=== PATIENT | female | born 1945 | race Caucasian/White ===

== ENCOUNTER 2017-03-26 22:03 | Observation (INO) ==
[2017-03-26] MEDS ORDERED: Ipratropium/Albuterol Neb 3 ML IH ONE (22:16)
[2017-03-26] MEDS ORDERED: methylPREDNISolone 125 MG/2 ML VIAL IVP ONE (22:16)
[2017-03-26 22:46] LABS: Basophils % 0.4 %; Eosinophils # 0.1 K/mcL (0.0-0.6); Eosinophils % 0.6 %; Hematocrit 44.7 % (35.3-44.9); Hemoglobin 15.6 g/dL (11.5-15.4); Immature Granulocytes % 0.3 % (0-4); Lymphocytes # 1.5 K/mcL (0.6-4.6); Lymphocytes % 15.8 %; Mean Corpuscular HGB Conc 34.9 g/dL (31.6-35.5); Mean Corpuscular Hemoglobin 32.6 pg (28.0-33.3); Mean Corpuscular Volume 93.3 fL (83.0-100.0); Mean Platelet Volume 9.8 fL (9.4-12.4); Monocytes # 0.7 K/mcL (0.0-1.3); Monocytes % 7.6 %; Neutrophils # 7.1 K/mcL (1.6-8.9); Platelet Count 245 K/mcL (140-400); Red Blood Count 4.79 M/mcL (3.82-4.97); Red Cell Distribution Width 12.6 % (11.5-14.5); Segmented Neutrophils % 75.3 %
[2017-03-26 22:51] LABS: INR 1.1; Prothrombin Time 11.4 Seconds (9.4-12.1)
[2017-03-26 22:53] LABS: Activated Partial Thrombo Time 30.5 Seconds (26.0-36.0)
[2017-03-26 23:01] LABS: Alanine Aminotransferase 14 Units/L (0-55); Albumin 3.5 g/dL (3.5-5.0); Albumin/Globulin Ratio 0.9 (1.1-2.2); Alkaline Phosphatase 61 Units/L (38-126); Aspartate Amino Transferase 30 Units/L (5-34); BUN/Creatinine Ratio 16 (6-26); Bilirubin,Direct 0.3 mg/dL (0.0-0.5); Bilirubin,Indirect 0.4 mg/dL (0.0-1.2); Bilirubin,Total 0.7 mg/dL (0.2-1.2); Blood Urea Nitrogen 10 mg/dL (7-20); Calcium 9.8 mg/dL (8.6-10.8); Carbon Dioxide 30 mEq/L (19-29); Chloride 92 mEq/L (98-109); Globulin 4.1 g/dL (2.4-3.5); Glucose 111 mg/dL (70-99); Lipase 26 Units/L (8-78); Osmolality,Calculated 284 (280-300); Potassium 3.3 mEq/L (3.5-4.5); Sodium 137 mEq/L (136-145); Total Protein 7.6 g/dL (6.0-8.3); eGFR For African Americans > 60 (> 60); eGFR For Non-African Americans > 60 (> 60)
[2017-03-26] MEDS ORDERED: Aspirin 81 MG TAB.CHEW PO ONE (23:14)
--- NOTE | 2017-03-26 23:46 | Emergency Department Note ---
Disposition Clinical Impression: Elevated troponin Dyspnea Qualifiers: Dyspnea type: dyspnea on exertion Qualified Code(s): R06.09 - Other forms of dyspnea Disposition: Admitted As Inpatient Condition: Good Time of Disposition: 01:22 SOB HPI - General Chief Complaint: ED Shortness of Breath/Dyspnea Stated Complaint: eunice Time Seen by Provider: 03/26/17 23:03 Source: patient Limitations: no limitations Nursing Notes Reviewed: Yes Vital Signs Reviewed: Yes - History of Present Illness Pt Subjective Complaint: shortness of breath Onset (ago): day(s) (2) Context: trauma/injury (fell three days ago) Consistency/Duration: gradually worsening Improves with: bronchodilators Worsens with: movement Known history of: COPD Associated symptoms: Reports: wheezing, sputum production. Denies: chest pain, pain with inspiration, fever, cough, orthopnea, lower extremity pain, hemoptysis , diaphoresis, nausea/vomiting, abdominal pain Treatment prior to arrival: oxygen, bronchodilator Cough present: Yes Cough Description: Voluntary Cough Frequency: Intermittent - Related Data Allergies Allergy/AdvReac Type Severity Reaction Status Date / Time naproxen [From Naprosyn] AdvReac Dizziness Verified 03/26/17 22:11 All systems ED: reviewed and negative except as stated. Constitutional: Denies: fever, chills Eyes: Denies: eye discharge ENT ED: Denies: throat pain Cardiovascular: Denies: palpitations Respiratory: Reports: as per HPI Gastrointestinal: Denies: nausea Genitourinary: Denies: dysuria Musculoskeletal: Denies: back pain Integumentary: Denies: rash Neurological: Denies: headache Psychiatric: Denies: anxiety Endocrine: Denies: fatigue Hematological/Lymphatic: Denies: easy bleeding Allergic/Immunologic: Denies: facial swelling Past Medical History - Past Medical History Medical history: Reports: COPD, osteoporosis Psychiatric history: Reports: no psych history - Social History Smoking Status: Former smoker Smokeless Tobacco Status: No Alcohol use: Reports: none Drug use: Reports: none Physical Exam - General Limitations: no limitations General appearance: alert, in no apparent distress - Head Head exam: normocephalic - Eye Eye exam: Present: EOMI. Absent: conjunctival injection - ENT ENT exam: mucous membranes moist - Neck Neck exam: Present: full ROM - Chest Chest inspection: Present: symmetric chest wall rise - Respiratory Respiratory exam: Absent: respiratory distress, stridor, accessory muscle use, prolonged expiratory phase - Expanded Respiratory Exam Location: wheezes: Left, Upper, Lower, rhonchi: Left, Upper, Lower - Cardiovascular Cardiovascular exam: Present: regular rate, tachycardia, normal heart sounds - Abdominal Exam Abdominal exam: Present: Non-Tender - Extremities Exam Extremities exam: Present: normal inspection, full ROM, normal capillary refill. Absent: pedal edema - Back Exam Back exam: Present: tenderness Back 1 view image: 1 - eccymosis/tenderness - Neurological Exam Neurological exam: Present: alert - Psychiatric Psychiatric exam: Present: normal affect, normal mood - Skin Skin exam: Present: warm, dry, intact, normal color. Absent: rash, cyanosis, diaphoresis Course Course Narrative: 71-year-old female former smoker presents with worsening shortness of breath that started yesterday. She does mention a mechanical fall onto her back 3 days ago and describes pain since that time she her shortness of breath has started in worsening. She states no relief with her breathing treatments at home. She denies chest pain, diaphoresis, exertional component of her symptoms , neck or extremity pain, fever, chills. Patient seen and examined. Left sided rhonchi/wheezing on expiration. Ecchymosis noted over the posterior thoracic back just lateral to her thoracic spine, patient denies any vertebral pain., Headache, weakness, numbness, tingling. Workup initiated. - Reevaluation(s) Reevaluation #1: Chest x-ray shows bilateral basal linear opacities, atelectasis versus consolidation. Patient is also tachycardic, worsening shortness of breath since 2 days ago. Concerning for pneumonia. Patient also has elevated BNP and troponin. No concerning signs for STEMI on EKG, moderate ST depression. No bilateral extremity edema. Discussed with attending Dr. Yeh, who advised for CT of head and neck and back due to fall history of osteoporosis. Will also initiate fluids and will plan for admission. Time: 23:46 Reevaluation #2: Patient discussed with and accepted by hospitalist Dr. Mayorga. Time: 01:12 Vital Signs Temperature 98.5 F 10/04/17 22:04 Pulse Rate 102 03/26/17 22:04 Respiratory Rate 21 03/26/17 22:04 Blood Pressure 207/119 03/26/17 22:04 O2 Sat by Pulse Oximetry 93 03/26/17 22:04 Temperature 98.5 F 03/26/17 22:04 Pulse Rate 107 03/27/17 00:37 Respiratory Rate 16 03/27/17 00:37 Blood Pressure 166/90 03/27/17 00:37 O2 Sat by Pulse Oximetry 95 03/27/17 00:37 Oxygen Delivery Oxygen Delivery Nasal Cannula Shortness of Breath/Dyspnea - Lab Data Lab results reviewed: Yes I reviewed the patient's lab results. Result diagrams: 03/26/17 22:32 03/26/17 22:32 Lab Results 03/26/17 03/26/17 03/26/17 Range/Units 22:32 22:32 22:32 WBC 9.4 (4.3-11.1) K/mcL RBC 4.79 (3.82-4.97) M/mcL Hgb 15.6 H (11.5-15.4) g/dL Hct 44.7 (35.3-44.9) % MCV 93.3 (83.0-100.0) fL MCH 32.6 (28.0-33.3) pg MCHC 34.9 (31.6-35.5) g/dL RDW 12.6 (11.5-14.5) % Plt Count 245 (140-400) K/mcL MPV 9.8 (9.4-12.4) fL Immature Gran % 0.3 (0-4) % Seg Neutrophils % 75.3 % Lymphocytes % 15.8 % Monocytes % 7.6 % Eosinophils % 0.6 % Basophils % 0.4 % Neutrophils # 7.1 (1.6-8.9) K/mcL Lymphocytes # 1.5 (0.6-4.6) K/mcL Monocytes # 0.7 (0.0-1.3) K/mcL Eosinophils # 0.1 (0.0-0.6) K/mcL Basophils # 0.0 (0.0-0.2) K/mcL PT 11.4 (9.4-12.1) Seconds INR 1.1 APTT 30.5 (26.0-36.0) Seconds Sodium (136-145) mEq/L Potassium (3.5-4.5) mEq/L Chloride (98-109) mEq/L Carbon Dioxide (19-29) mEq/L BUN (7-20) mg/dL Creatinine (0.57-1.11) mg/dL Est GFR ( Amer) (> 60) Est GFR (Non-Af Amer) (> 60) BUN/Creatinine Ratio (6-26) Glucose (70-99) mg/dL Calculated Osmolality (280-300) Lactic Acid (0.5-2.2) mmol/L Calcium (8.6-10.8) mg/dL Total Bilirubin (0.2-1.2) mg/dL Direct Bilirubin (0.0-0.5) mg/dL Indirect Bilirubin (0.0-1.2) mg/dL AST (5-34) Units/L ALT (0-55) Units/L Alkaline Phosphatase (38-126) Units/L Troponin I (0-0.03) ng/mL B-Natriuretic Peptide 480 H (0-100) pg/mL Serum Total Protein (6.0-8.3) g/dL Albumin (3.5-5.0) g/dL Globulin (2.4-3.5) g/dL Albumin/Globulin Ratio (1.1-2.2) Lipase (8-78) Units/L 03/26/17 03/26/17 03/27/17 Range/Units 22:32 22:32 00:22 WBC (4.3-11.1) K/mcL RBC (3.82-4.97) M/mcL Hgb (11.5-15.4) g/dL Hct (35.3-44.9) % MCV (83.0-100.0) fL MCH (28.0-33.3) pg MCHC (31.6-35.5) g/dL RDW (11.5-14.5) % Plt Count (140-400) K/mcL MPV (9.4-12.4) fL Immature Gran % (0-4) % Seg Neutrophils % % Lymphocytes % % Monocytes % % Eosinophils % % Basophils % % Neutrophils # (1.6-8.9) K/mcL Lymphocytes # (0.6-4.6) K/mcL Monocytes # (0.0-1.3) K/mcL Eosinophils # (0.0-0.6) K/mcL Basophils # (0.0-0.2) K/mcL PT (9.4-12.1) Seconds INR APTT (26.0-36.0) Seconds Sodium 137 (136-145) mEq/L Potassium 3.3 L (3.5-4.5) mEq/L Chloride 92 L (98-109) mEq/L Carbon Dioxide 30 H (19-29) mEq/L BUN 10 (7-20) mg/dL Creatinine 0.61 (0.57-1.11) mg/dL Est GFR ( Amer) > 60 (> 60) Est GFR (Non-Af Amer) > 60 (> 60) BUN/Creatinine Ratio 16 (6-26) Glucose 111 H (70-99) mg/dL Calculated Osmolality 284 (280-300) Lactic Acid 0.9 (0.5-2.2) mmol/L Calcium 9.8 (8.6-10.8) mg/dL Total Bilirubin 0.7 (0.2-1.2) mg/dL Direct Bilirubin 0.3 (0.0-0.5) mg/dL Indirect Bilirubin 0.4 (0.0-1.2) mg/dL AST 30 (5-34) Units/L ALT 14 (0-55) Units/L Alkaline Phosphatase 61 (38-126) Units/L Troponin I 0.05 H* (0-0.03) ng/mL B-Natriuretic Peptide (0-100) pg/mL Serum Total Protein 7.6 (6.0-8.3) g/dL Albumin 3.5 (3.5-5.0) g/dL Globulin 4.1 H (2.4-3.5) g/dL Albumin/Globulin Ratio 0.9 L (1.1-2.2) Lipase 26 (8-78) Units/L - Radiology Data Radiology results reviewed: Yes I reviewed the patient's radiology results. - EKG Data EKG attestation: Yes I reviewed and interpreted this EKG. EKG results narrative: Sinus tachycardia at 109, Moderate ST depression, no evidence of ST elevation, MS interval 128, QRS duration 86, QT/QTC 333/397 Attestation Statement - Attestation Attestation: I examined this patient and my medical decision-making was reviewed with the Resident Physician. I agree with the documented findings, disposition and treatment plan as described except to the extent set forth below. ACOPDE with pneumonia therapy. Patient staets she has had a productive cough with fall and that she has had pneumonia in the past and it feels very similar. pneumonia present on CXR, we will treat with levaquin and breathing treatments/ seroids and admit to medicne.
[2017-03-27] MEDS ORDERED: 0.9 % Sodium Chloride 500 ML IVC ONE (00:45)
[2017-03-27] MEDS ORDERED: Levofloxacin 500 MG/100 ML 500 MG/100 ML BAG IVPB SCH (01:00)
[2017-03-27] MEDS ORDERED: *HR* Morphine 2 MG/ML SYRINGE IVP PRN (02:03)
[2017-03-27] MEDS ORDERED: *HR* Promethazine 25 MG/ML VIAL IVP PRN (02:03)
[2017-03-27] MEDS ORDERED: Naloxone 0.4 MG/ML INJ IVP PRN ×2 (02:03→12:24)
[2017-03-27] MEDS ORDERED: Acetaminophen 325 MG TABLET PO PRN (02:03)
[2017-03-27] MEDS ORDERED: Ondansetron 4 MG/2 ML VIAL IVP PRN (02:03)
--- NOTE | 2017-03-27 02:13 | Internal Med History&Physical ---
Date of Encounter: 03/27/17 Time of Encounter: 01:30 Assessment and Plan (1) Acute and chronic respiratory failure with hypoxia Current visit: Yes Status: Acute Will admit the pt into Tele Pt does have severe COPD exacerbation might triggered by pneumonia will cont Duoneb Q4hr NELL + O2 Will start her on high talamantes IV steroids on Mucinex Will sent for sputum cx started her on empirical abx Levofloxacin (2) Pneumonia Current visit: Yes Status: Acute Mostly bacterial reviewed CXR showing patchy infiltrates in b/l basal region, yareli bronchial thickening, hyperinflated lungs noticed..Vascular congestion noticed Will cont empirical abx Levofloxacin Duoneb and O2 Qualifiers: Qualified Code(s): J18.9 - Pneumonia, unspecified organism (3) COPD with acute exacerbation Current visit: Yes Status: Acute see above (4) Elevated troponin Current visit: Yes Status: Acute Mostly due demand ischemia with respiratory failure also concerned for underline acute onset of mild CHF exacerbation cont trend on trop will check 2 D Echo (5) Congestive heart failure Current visit: Yes Status: Acute She does have clinical symptoms Orthopnea, and B/l LE edema , also had significantly elevated BNP No previous Echo to confirm Systolic vs Diastolic..suspecting more like diastolic will check 2 D Echo in AM Will hold on Lasix for now Qualifiers: Congestive heart failure type: unspecified congestive heart failure type Qualified Code(s): I50.9 - Heart failure, unspecified Internal Medicine - H&P: HPI Chief complaint: Shortness of breath Admitted From: Emergency Dept Plans for Post Hospital Care: Home History of present illness: Ms. Valentino is a 71 year old female with known PMH of HTN, COPD, Chronic hypoxic respiratory failure on home O2 dependent at 2 lit as needed basis, who was a former smoker quit smoking in 2010 now she presented to ER c/o progressively worsening SOB, Cough with yellowsih sputum production from past 3 days. She also had a mechanical fall a couple of days ago , denied any head trauma. Denied any active CP . Denied any GI / symptoms. Past Med Surg Social Fam HX - Past Medical History Medical history: COPD, osteoporosis Psychiatric history: no psych history - Social History Smoking Status: Former smoker Smokeless Tobacco Status: No Alcohol use: none Drug use: none - Additional Family History Additional family history: Reviewed and noncontributory to current problem Internal Medicine - H&P: Meds 3 Allergy/AdvReac Type Severity Reaction Status Date / Time naproxen [From Naprosyn] AdvReac Dizziness Verified 03/26/17 22:11 All Systems PM: A 10-system review of systems was performed and is negative for pertinent findings except as documented above in the HPI. Review of systems: All the systems are reviewed everything is benign except the systems and symptoms I mentioned in the history of present illness - Constitutional Vitals: Temp Pulse Resp BP Pulse Ox 98.4 F 107 18 162/88 95 03/27/17 02:03 03/27/17 00:37 03/27/17 02:03 03/27/17 02:03 03/27/17 00:37 General appearance: Present: mild distress (However she is able to finish full sentence without any pause), A&O X 3 - Head Head exam: Present: atraumatic, normal inspection - Neck Neck exam general surgery: Present: supple. Absent: lymphadenopathy - Respiratory Respiratory exam: Present: decreased breath sounds, respiratory distress (mild) , wheezes (moderate to severe wheezing). Absent: rales, rhonchi - Cardiovascular Cardiovascular exam: Present: +S1, +S2, tachycardia - GI/Abdominal GI/Abdominal exam: Present: normal bowel sounds, soft. Absent: rebound, rigid, tenderness - Extremities Exam Extremities exam: Present: pedal edema (traceble). Absent: calf tenderness, tenderness - Back Exam Back exam: Absent: CVA tenderness (L), CVA tenderness (R) - Psychiatric Psychiatric exam: Present: normal affect, normal mood Internal Med - H&P Results - Labs CBC & Chem 7: 03/26/17 22:32 03/26/17 22:32
[2017-03-27] MEDS ORDERED: Nitroglycerin 0.4 MG TAB.SUBL SL PRN (02:26)
[2017-03-27] MEDS: *HR* HYDROcodone/Acet 5/325 mg TABLET PO PRN ×2 (03:23→17:44)
[2017-03-27] MEDS: Ipratropium/Albuterol Neb 3 ML IH SCH ×4 (03:42→16:02)
[2017-03-27] MEDS: MethylPREDNISolone 40 MG/ML VIAL IVP SCH ×3 (05:43→17:45)
[2017-03-27 05:56] LABS: Basophils % 0.1 %; Hemoglobin 14.4 g/dL (11.5-15.4); Immature Granulocytes % 0.2 % (0-4); Lymphocytes # 0.4 K/mcL (0.6-4.6); Lymphocytes % 3.7 %; Mean Corpuscular HGB Conc 34.3 g/dL (31.6-35.5); Mean Corpuscular Volume 93.3 fL (83.0-100.0); Mean Platelet Volume 9.7 fL (9.4-12.4); Monocytes # 0.1 K/mcL (0.0-1.3); Monocytes % 0.7 %; Neutrophils # 8.9 K/mcL (1.6-8.9); Platelet Count 257 K/mcL (140-400); Red Cell Distribution Width 12.5 % (11.5-14.5); Segmented Neutrophils % 95.3 %
[2017-03-27 06:10] LABS: BUN/Creatinine Ratio 18 (6-26); Blood Urea Nitrogen 12 mg/dL (7-20); Calcium 9.2 mg/dL (8.6-10.8); Carbon Dioxide 31 mEq/L (19-29); Chloride 95 mEq/L (98-109); Chol/HDL Ratio 2.7 (0-4.9); Cholesterol 212 mg/dL (< 200); Glucose 152 mg/dL (70-99); HDL Cholesterol 79 mg/dL (40-59); LDL Cholesterol,Calculated 121 mg/dL (0-99); Osmolality,Calculated 287 (280-300); Potassium 3.7 mEq/L (3.5-4.5); Sodium 137 mEq/L (136-145); Triglycerides 58 mg/dL (< 150); eGFR For African Americans > 60 (> 60); eGFR For Non-African Americans > 60 (> 60)
[2017-03-27] MEDS: Aspirin Enteric Coated 81 MG Tablet PO SCH (09:00)
[2017-03-27] MEDS ORDERED: Chloraseptic Spray 177 ML BOTTLE MM PRN (11:13)
--- NOTE | 2017-03-27 16:47 | Event Note ---
Date of Encounter: 03/27/17 Time of Encounter: 15:00 71-year-old female with history of hypertension, COPD presents with worsening shortness of breath, wheeze and status post mechanical fall 2 days ago. Patient is seen and examined at bedside. Reports improved shortness of breath and cough. Chest-S1, S2 heard, tachycardic. Lungs with coarse breath sounds bilaterally with end expiratory wheezing posteriorly. Acute on chronic hypoxic respiratory failure-secondary to acute COPD and pneumonia. Continue supplemental oxygen and treatment of underlying conditions as below. Acute exacerbation of COPD-improving. Continue bronchodilators, IV steroids and IV antibiotics. Supplemental oxygen. We will change short-acting beta 2 agonist to Xopenex due to tachycardia. Pneumonia-suspected. Chest x-ray shows bibasal streaky infiltrate/atelectasis. Continue IV Levaquin and follow-up blood cultures. Supplemental oxygen.
[2017-03-27] MEDS: Ipratropium Neb 0.5 MG NEBULIZER IH SCH ×2 (20:02→23:16)
[2017-03-27] MEDS: Albuterol 2.5 MG/3 ML NEBULIZER IH SCH ×2 (20:02→23:15)
--- NOTE | 2017-03-27 21:52 | Electrocardiograph Report ---
[facility] Test Date: 2017-03-26 Pat Name: Jonelle Valentino Department: 103 Room: 3B63 Gender: F Application Penetration Tester: DESTINY : 1945 Requested By: Ruba Robertson Order Number: [id number] Reading MD: Everardo Rojas MD Measurements Intervals [place] Rate: 109 P: 50 MA: 128 QRS: -48 QRSD: 86 T: 81 QT: 333 QTc: 397 Interpretive Statements SINUS TACHYCARDIA LEFT ANTERIOR FASCICULAR BLOCK Electronically Signed On 03-27-2017 21:50:54 EDT by Everardo Rojas MD
[2017-03-27] MEDS ORDERED: *HR* Dextrose 50 % in Water (Syg) 50 ML SYRINGE IVP PRN (22:26)
[2017-03-27] MEDS ORDERED: D5% in Water 1,000 ML IVC PRN (22:26)
[2017-03-27] MEDS ORDERED: Dextrose Gel 15 GM PO PRN ×2 (22:26)
[2017-03-27] MEDS: Insulin LISPRO 300 UNITS/3 ML VIAL SQ SCH (22:48)
[2017-03-28] MEDS: Levofloxacin 500 MG/100 ML 500 MG/100 ML BAG IVPB SCH (01:10)
[2017-03-28] MEDS: MethylPREDNISolone 40 MG/ML VIAL IVP SCH ×4 (01:10→17:56)
[2017-03-28] MEDS: Ipratropium Neb 0.5 MG NEBULIZER IH SCH ×6 (03:46→23:36)
[2017-03-28] MEDS: Albuterol 2.5 MG/3 ML NEBULIZER IH SCH ×3 (03:48→11:22)
[2017-03-28] MEDS: Insulin LISPRO 300 UNITS/3 ML VIAL SQ SCH ×4 (08:25→20:27)
[2017-03-28] MEDS: Aspirin Enteric Coated 81 MG Tablet PO SCH (08:25)
[2017-03-28] MEDS: Levalbuterol Neb 1.25 MG/3 ML IH SCH ×2 (15:39→23:36)
--- NOTE | 2017-03-28 17:32 | Internal Med Progress Note ---
Date of Encounter: 03/28/17 Time of Encounter: 13:30 - Assessment and plan (1) Elevated troponin Current Visit: Yes Status: Acute Assessment and plan: due to hypoxia and demand ischemia; normalized now. Echocardiogram showed significant sinus tachycardia, preserved EF, moderate concentric LVH, mild biatrial dilation, possible moderate mitral stenosis, recommend to repeat study when HR is better controlled. (2) COPD with acute exacerbation Current Visit: Yes Status: Acute Assessment and plan: improving; continue IV antibiotics, supplemental O2; taper down IV steroids as tolerated; will change nebs to Xopenex and Atrovent due to persistent tachycardia. O2 requirements improved to baseline. (3) Acute and chronic respiratory failure with hypoxia Current Visit: Yes Status: Resolved (4) Pneumonia Current Visit: Yes Status: Acute Assessment and plan: Chest XRay shows streaky opacities in B/L bases, could be infiltrates. Continue IV Levaquin. Improving. Blood cultures negative. Qualifiers: Pneumonia type: due to unspecified organism Laterality: bilateral Lung location: lower lobe of lung Qualified Code(s): J18.9 - Pneumonia, unspecified organism (5) Essential hypertension Current Visit: Yes Status: Chronic - Subjective Interval history: Reports feeling much better today; improved shortness of breath, wheezing, anxious to go home today. - Constitutional Vitals: Temp Pulse Resp BP Pulse Ox 98.0 F 104 18 155/89 97 03/28/17 15:04 03/28/17 15:04 03/28/17 15:41 03/28/17 15:04 03/28/17 16:40 General appearance: Present: A&O X 3, answers questions appropriately - Respiratory Respiratory exam: Present: CTAB. Absent: accessory muscle use, rales, rhonchi, wheezes - Cardiovascular Cardiovascular exam: Present: RRR (extra beats), +S1, +S2, tachycardia. Absent : diastolic murmur, gallop, rubs, systolic murmur - GI/Abdominal GI/Abdominal exam: Present: normal bowel sounds, soft, no peritoneal signs. Absent: distended, tenderness - Extremities Exam Extremities exam: Present: full ROM, warm, radial pulses palpable and symmetrical. Absent: calf tenderness, cyanotic, pedal edema Internal Medicine: Result - Labs CBC & Chem 7: 03/27/17 05:49 03/27/17 05:49 - ABG Interpretation ABG results: PT/INR, D-dimer PT 11.4 Seconds (9.4-12.1) 03/26/17 22:32 Consult Discharge Plan - Plan Referrals: Ben Hoagn DO [Primary Care Provider] -
[2017-03-29] MEDS: Levofloxacin 500 MG/100 ML 500 MG/100 ML BAG IVPB SCH (01:42)
[2017-03-29] MEDS: Ipratropium Neb 0.5 MG NEBULIZER IH SCH ×3 (04:32→11:05)
[2017-03-29] MEDS: Levalbuterol Neb 1.25 MG/3 ML IH SCH ×2 (04:32→07:58)
[2017-03-29] MEDS: MethylPREDNISolone 40 MG/ML VIAL IVP SCH (06:10)
[2017-03-29 07:52] VITALS: BP 175/99
[2017-03-29] MEDS: Aspirin Enteric Coated 81 MG Tablet PO SCH (08:27)
[2017-03-29] MEDS: Insulin LISPRO 300 UNITS/3 ML VIAL SQ SCH (08:28)
[2017-03-29] MEDS ORDERED: predniSONE 20 MG TABLET PO SCH (09:00)
--- NOTE | 2017-03-29 09:30 | Discharge Summary ---
Date of Encounter: 03/29/17 Time of Encounter: 09:28 - Discharge Diagnosis (1) Pneumonia Priority: Primary Status: Acute Qualifiers: Pneumonia type: due to unspecified organism Laterality: bilateral Lung location: lower lobe of lung Qualified Code(s): J18.9 - Pneumonia, unspecified organism (2) COPD with acute exacerbation Priority: Secondary Status: Acute (3) Elevated troponin Priority: Secondary Status: Acute (4) Acute and chronic respiratory failure with hypoxia Priority: Secondary Status: Resolved (5) Essential hypertension Priority: Secondary Status: Chronic (6) Congestive heart failure Priority: Secondary Status: Suspected Qualifiers: Congestive heart failure type: diastolic Congestive heart failure chronicity: chronic Qualified Code(s): I50.32 - Chronic diastolic (congestive ) heart failure - Discharge Medications Prescriptions: Aspirin Enteric Coated [Aspirin EC] 81 mg PO DAILY #30 tablet. Carvedilol [Coreg] 6.25 mg PO BIDWM #60 tablet levoFLOXacin [Levofloxacin] 500 mg PO DAILY #10 tablet predniSONE [PredniSONE] 10 mg PO DAILY 12 Days tablet Home Medications: Albuterol Sulfate [Proair Hfa] 2 puff IH Q4H PRN 03/27/17 [History] Budesonide/Formoterol 80/4.5 [Symbicort 80/4.5] 2 puff IH BID 03/27/17 [History ] Ca/D3/Mag#11/Zinc/Forestry Fire Aid/Saul/Bor [Caltrate 600+D Plus Tablet] 1 each PO QAM [History] HYDROcodone/Acet 5/325 mg [[place] 5-325 mg] 1 tab PO Q8H PRN 03/27/17 [History] Multivit with Calcium,Iron,Min [One Daily Women's] 1 each PO QAM 03/27/17 [ History] Oxygen 2 l NS AD PRN 03/27/17 [History] Aspirin Enteric Coated [Aspirin EC] 81 mg PO DAILY #30 tablet. 03/29/17 [Rx] Carvedilol [Coreg] 6.25 mg PO BIDWM #60 tablet 03/29/17 [Rx] levoFLOXacin [Levofloxacin] 500 mg PO DAILY #10 tablet 03/29/17 [Rx] predniSONE [PredniSONE] 10 mg PO DAILY 12 Days tablet 03/29/17 [Rx] Allergies/Adverse Reactions: 3 Allergy/AdvReac Type Severity Reaction Status Date / Time naproxen [From Naprosyn] AdvReac Dizziness Verified 03/26/17 22:11 Procedures/tests Complete & Pending: Procedures Performed prior 72 hours Category Date Time Status EV echocardiogram Routine Y 03/27/17 02:08 Completed Date of admission: 03/27/17 01:23 Primary care physician: Ben Hogan, Consults: 03/27/17 11:43 Consult to Medical Records Coordinator [CONS] Routine Reason for SW Consult: discharge planning Discharging clinician: Miguelina Damian Anticipated date of discharge: 03/29/17 - Patient Status Disposition: Home, Self-Care Condition: Good Functional capacity at discharge: independent ambulation Overall status at discharge: patient is progressing back to baseline - Discharge Instructions Instructions: Chronic Obstructive Pulmonary Disease (DC), Chronic Hypertension (DC), Pneumonia (DC) Follow Up With: Ben Hogan DO [Primary Care Provider] - (In 1-2 weeks) Maico Kerr MD [Partnered Physician] - (In 1-2 weeks) - Diet and Activity Activity: increase activity as tolerated, wear oxygen at all times Diet: diabetic diet, low fat, low cholesterol, low salt diet Hospital course: Ms. Valentino is a 71 year old female patient with a history of hypertension, COPD , chronic hypoxic respiratory failure who was hospitalized here with worsening shortness of breath along with cough and yellow sputum. She also admits recent mechanical fall. She was admitted and treated for pneumonia and COPD exacerbation with bronchodilators, O2 supplementation, antibiotics and steroids. She had an elevated BNP on initial blood work. Her troponins were also slightly elevated to 0.05 and have since trended down. A 2-D echocardiogram was done which showed a normal ejection fraction. Diastolic function could not be determined due to persistent tachycardia. The patient may have underlying diastolic dysfunction but did not have any symptoms of overt heart failure. Her chest x-ray showed COPD and bibasilar atelectasis/ infiltrates. Her troponin elevation is most likely due to demand ischemia and hypoxia. At this time, patient is feeling much better and is clinically stable for discharge home. She will be discharged on a steroid taper and levofloxacin. Patient did have elevated blood sugars on presentation. She has no prior diagnosis of diabetes. Her blood sugars were continuously monitored during her stay here. They have improved since. She required insulin initially but since yesterday her blood sugars have been much better without any insulin. She may have prediabetes and an A1c level has been ordered and is currently pending. She can follow up further with her primary care provider. Patient has also been hypotensive and I am placing her on carvedilol. She had previously been on antihypertensive medications but these were discontinued as she was becoming hypotensive. She will follow-up with her primary care provider for further management. I am also referring her to pulmonology for her COPD. - Time Spent with Patient Total time spent providing and/or coordinating discharge services: Greater than 30 minutes (35 min) - Constitutional Vitals: Temp Pulse Resp BP Pulse Ox 98.1 F 90 16 175/99 94 03/29/17 07:51 03/29/17 07:51 03/29/17 07:51 03/29/17 07:51 03/29/17 07:51 General appearance: Present: A&O X 3, answers questions appropriately - Neck Neck exam general surgery: Present: supple, trachea midline. Absent: lymphadenopathy - Respiratory Respiratory exam: Present: prolonged expiratory phase. Absent: accessory muscle use, rales, rhonchi, wheezes - Cardiovascular Cardiovascular exam: Present: RRR, +S1, +S2. Absent: diastolic murmur, gallop, rubs, systolic murmur - GI/Abdominal GI/Abdominal exam: Present: normal bowel sounds, soft, no peritoneal signs. Absent: distended, tenderness - Extremities Exam Extremities exam: Present: warm, radial pulses palpable and symmetrical. Absent : calf tenderness, cyanotic, pedal edema
[2017-03-29 10:20] LABS: Hemoglobin A1C 5.4 %
== END 2017-03-29 11:30 | disposition home or self-care (01) ==
LOC: EMEROO 22:03 → 3BNU 22:03 → SUATTDRO 03-27 01:23 → 3BNU 03-27 01:26
PROVIDERS: ADMIT Pediatrics; ATTEND Internal Medicine

== ENCOUNTER 2017-04-09 14:34 | Inpatient (IN) ==
[2017-04-09] MEDS ORDERED: Ipratropium/Albuterol Neb 3 ML IH ONE (14:37)
--- NOTE | 2017-04-09 14:39 | Emergency Department Note ---
START Narrative - START START: Patient seen shortly after her arrival by EMS. She was seen in the hallway due to lack of medical meds. She complains of dyspnea with an existing history of oxygen dependent COPD. Recent admission for same with diagnosis of pneumonia. Mild dyspnea on exam. Orders placed I examined this patient and my medical decision-making was reviewed with the Resident Physician. I agree with the documented findings, disposition and treatment plan as described except to the extent set forth below.
--- NOTE | 2017-04-09 14:43 | Emergency Department Note ---
Disposition Clinical Impression: HCAP (healthcare-associated pneumonia), Hypoxia Chest pain Qualifiers: Chest pain type: unspecified Qualified Code(s): R07.9 - Chest pain, unspecified Dyspnea Qualifiers: Dyspnea type: unspecified Qualified Code(s): R06.00 - Dyspnea, unspecified Disposition: Admitted As Inpatient Condition: Good Forms: ED Satisfaction Letter Time of Disposition: 16:04 SOB HPI - General Chief Complaint: ED Shortness of Breath/Dyspnea Stated Complaint: PRIYANKA Time Seen by Provider: 04/09/17 14:37 Source: patient, EMS Limitations: no limitations Nursing Notes Reviewed: Yes Vital Signs Reviewed: Yes - History of Present Illness Patient is a 71-year-old female with past medical history of COPD, HTN. She had a recent diagnosis of pneumonia 2 weeks ago. She was hospitalized during that time, eventually fell home with oral antibiotics. She states that she finished her last dose of Levaquin yesterday. She was also sent home with oxygen due to low oxygen saturation during her stay. She uses 2 L chronically now. Before this event, the patient said that she had not used home oxygen in years. She presents today due to shortness of breath, left-sided chest pain. She says that she is very anxious, she had an echocardiogram done in the hospital that she says showed inconclusive reading about her mitral valve and this is worrying her. She said "I think in the perfect candidate for heart attack." She is still having some mild left sided chest discomfort, shortness of breath. Denies any fevers, nausea, vomiting, abdominal pain, diarrhea. She does admit to productive cough and phlegm production above her baseline. Son is present with her and states that she fell about 3 weeks ago and hit the left side of the chest on coffee table. - Related Data Home Medications Medication Instructions Recorded Confirmed Albuterol Sulfate [Proair Hfa] 2 puff IH Q4H PRN 03/27/17 03/27/17 Budesonide/Formoterol 80/4.5 2 puff IH BID 03/27/17 03/27/17 [Symbicort 80/4.5] Ca/D3/Mag#11/Zinc/Raw Stock Machine Loader/Saul/Bor 1 each PO QAM 03/27/17 03/27/17 [Caltrate 600+D Plus Tablet] HYDROcodone/Acet 5/325 mg [[place] 1 tab PO Q8H PRN 10/05/17 10/05/17 5-325 mg] Multivit with Calcium,Iron,Min 1 each PO QAM 03/27/17 03/27/17 [One Daily Women's] Oxygen 2 l NS AD PRN 03/27/17 03/27/17 Previous Rx's Medication Instructions Recorded Aspirin Enteric Coated [Aspirin EC] 81 mg PO DAILY #30 tablet. 03/29/17 Carvedilol [Coreg] 6.25 mg PO BIDWM #60 tablet 03/29/17 levoFLOXacin [Levofloxacin] 500 mg PO DAILY #10 tablet 03/29/17 predniSONE [PredniSONE] 10 mg PO DAILY 12 Days tablet 03/29/17 Allergies Allergy/AdvReac Type Severity Reaction Status Date / Time naproxen [From Naprosyn] AdvReac Dizziness Verified 03/26/17 22:11 All systems ED: reviewed and negative except as stated. Constitutional: Denies: fever Cardiovascular: Reports: chest pain Respiratory: Reports: cough, dyspnea, sputum production Gastrointestinal: Denies: abdominal pain, nausea, vomiting, diarrhea Genitourinary: Denies: urgency, dysuria, frequency Neurological: Denies: headache, weakness, numbness, paresthesias Past Medical History - Past Medical History Attestation: Yes The following information was validated with the patient. Source: patient Medical history: Reports: COPD, hypertension, osteoporosis Surgical history: Reports: orthopedic, other Psychiatric history: Reports: no psych history - Social History Smoking Status: Former smoker Smokeless Tobacco Status: No Alcohol use: Reports: none Drug use: Reports: none Physical Exam - General Limitations: no limitations General appearance: alert, in no apparent distress - Head Head exam: atraumatic, normocephalic, normal inspection - Eye Eye exam: Present: normal appearance, PERRL, EOMI - ENT ENT exam: normal exam, normal oropharynx, mucous membranes moist - Neck Neck exam: Present: normal inspection, full ROM, trachea midline - Chest Chest inspection: Present: normal inspection, symmetric chest wall rise - Respiratory Respiratory exam: Present: wheezes (Wheezes of the right lower lobe, decreased aeration of the left lower lobe) - Cardiovascular Cardiovascular exam: Present: regular rate, normal rhythm, normal heart sounds - Abdominal Exam Abdominal exam: Present: soft, Non-Tender. Absent: tenderness, distention, guarding, rebound, rigidity - Extremities Exam Extremities exam: Present: normal inspection, full ROM. Absent: tenderness, pedal edema - Neurological Exam Neurological exam: Present: alert, oriented X3 - Psychiatric Psychiatric exam: Present: normal affect, normal mood - Skin Skin exam: Present: warm, dry, intact, normal color Course Course Narrative: Patient was hypertensive on presentation, however, she was moving her arms around and not sitting still. We will recheck this to see if the level is accurate. Oxygen saturation 92% on room air. The rest of the vitals were within normal limits. Patient has mild to moderate increased work of breathing with some mild accessory muscle use. She has decreased aeration of the left lower lobe, wheezes in the right lower lobe. Otherwise, rest of the physical exam was benign. We will give the patient breathing treatments, obtain chest x- ray, EKG, basic blood work. I think patient's presentation is likely more COPD related with anxiety component. However, still need to assess cardiac etiology. 15:57 troponin elevated at 0.06. Troponin has been elevated in the past at 0.03 and 0.05. Patient has been given aspirin. She currently denies any chest pain at this time. I do not believe that this is cardiac in nature. Chest x- ray shows left lower lobe pneumonia. Patient was just recently released from the hospital. Technically, this to be healthcare associated pneumonia. We will start IV antibiotics of clindamycin, Zosyn, Levaquin. Otherwise, the rest of the labs were near baseline for the patient. EKG showed sinus rhythm with occasional PACs with no acute ST changes. All this was discussed with the patient. She was agreeable with coming into the hospital for IV antibiotics. We will admit for pneumonia, dyspnea, hypoxia, elevated troponin level. Vital Signs Temperature 98.6 F 04/09/17 14:35 Pulse Rate 93 04/09/17 14:35 Respiratory Rate 20 04/09/17 14:35 Blood Pressure 202/106 04/09/17 14:35 O2 Sat by Pulse Oximetry 92 04/09/17 14:35 Temperature 98.6 F 04/09/17 14:35 Pulse Rate 90 04/09/17 15:21 Respiratory Rate 18 04/09/17 15:21 Blood Pressure 161/105 04/09/17 15:21 O2 Sat by Pulse Oximetry 91 04/09/17 15:21 Oxygen Delivery Oxygen Delivery Nasal Cannula Shortness of Breath/Dyspnea - [facility] Narrative Medical decision making narrative: troponin elevated at 0.06. Troponin has been elevated in the past at 0.03 and 0.05. Patient has been given aspirin. She currently denies any chest pain at this time. I do not believe that this is cardiac in nature. Chest x-ray shows left lower lobe pneumonia. Patient was just recently released from the hospital. Technically, this to be healthcare associated pneumonia. We will start IV antibiotics of clindamycin, Zosyn, Levaquin. Otherwise, the rest of the labs were near baseline for the patient. EKG showed sinus rhythm with occasional PACs with no acute ST changes. All this was discussed with the patient. She was agreeable with coming into the hospital for IV antibiotics. We will admit for pneumonia, dyspnea, hypoxia, elevated troponin level. - Medical Records Medical records reviewed: Yes I reviewed the patient's medical records. - Lab Data Lab results reviewed: Yes I reviewed the patient's lab results. Result diagrams: 04/09/17 14:56 04/09/17 14:56 Lab Results 04/09/17 04/09/17 04/09/17 Range/Units 14:56 14:56 14:56 WBC 14.2 H (4.3-11.1) K/mcL RBC 5.12 H (3.82-4.97) M/mcL Hgb 16.2 H (11.5-15.4) g/dL Hct 46.5 H (35.3-44.9) % MCV 90.8 (83.0-100.0) fL MCH 31.6 (28.0-33.3) pg MCHC 34.8 (31.6-35.5) g/dL RDW 12.5 (11.5-14.5) % Plt Count 348 (140-400) K/mcL MPV 9.4 (9.4-12.4) fL Immature Gran % 0.6 (0-4) % Seg Neutrophils % 77.4 % Lymphocytes % 13.7 % Monocytes % 7.7 % Eosinophils % 0.5 % Basophils % 0.1 % Neutrophils # 11.0 H (1.6-8.9) K/mcL Lymphocytes # 1.9 (0.6-4.6) K/mcL Monocytes # 1.1 (0.0-1.3) K/mcL Eosinophils # 0.1 (0.0-0.6) K/mcL Basophils # 0.0 (0.0-0.2) K/mcL PT 10.5 (9.4-12.1) Seconds INR 1.0 Sodium 133 L (136-145) mEq/L Potassium 3.1 L (3.5-4.5) mEq/L Chloride 89 L (98-109) mEq/L Carbon Dioxide 35 H (19-29) mEq/L BUN 16 (7-20) mg/dL Creatinine 0.66 (0.57-1.11) mg/dL Est GFR ( Amer) > 60 (> 60) Est GFR (Non-Af Amer) > 60 (> 60) BUN/Creatinine Ratio 24 (6-26) Glucose 105 H (70-99) mg/dL Calculated Osmolality 278 L (280-300) Calcium 9.4 (8.6-10.8) mg/dL Total Bilirubin 0.6 (0.2-1.2) mg/dL AST 24 (5-34) Units/L ALT 16 (0-55) Units/L Alkaline Phosphatase 78 (38-126) Units/L Troponin I (0-0.03) ng/mL B-Natriuretic Peptide (0-100) pg/mL Serum Total Protein 6.9 (6.0-8.3) g/dL Albumin 3.3 L (3.5-5.0) g/dL Globulin 3.6 H (2.4-3.5) g/dL Albumin/Globulin Ratio 0.9 L (1.1-2.2) 04/09/17 04/09/17 Range/Units 14:56 14:56 WBC (4.3-11.1) K/mcL RBC (3.82-4.97) M/mcL Hgb (11.5-15.4) g/dL Hct (35.3-44.9) % MCV (83.0-100.0) fL MCH (28.0-33.3) pg MCHC (31.6-35.5) g/dL RDW (11.5-14.5) % Plt Count (140-400) K/mcL MPV (9.4-12.4) fL Immature Gran % (0-4) % Seg Neutrophils % % Lymphocytes % % Monocytes % % Eosinophils % % Basophils % % Neutrophils # (1.6-8.9) K/mcL Lymphocytes # (0.6-4.6) K/mcL Monocytes # (0.0-1.3) K/mcL Eosinophils # (0.0-0.6) K/mcL Basophils # (0.0-0.2) K/mcL PT (9.4-12.1) Seconds INR Sodium (136-145) mEq/L Potassium (3.5-4.5) mEq/L Chloride (98-109) mEq/L Carbon Dioxide (19-29) mEq/L BUN (7-20) mg/dL Creatinine (0.57-1.11) mg/dL Est GFR ( Amer) (> 60) Est GFR (Non-Af Amer) (> 60) BUN/Creatinine Ratio (6-26) Glucose (70-99) mg/dL Calculated Osmolality (280-300) Calcium (8.6-10.8) mg/dL Total Bilirubin (0.2-1.2) mg/dL AST (5-34) Units/L ALT (0-55) Units/L Alkaline Phosphatase (38-126) Units/L Troponin I 0.06 H* (0-0.03) ng/mL B-Natriuretic Peptide 922 H (0-100) pg/mL Serum Total Protein (6.0-8.3) g/dL Albumin (3.5-5.0) g/dL Globulin (2.4-3.5) g/dL Albumin/Globulin Ratio (1.1-2.2) - Radiology Data Radiology results reviewed: Yes I reviewed the patient's radiology results. Chest X-Ray 04/09/17 14:37 IMPRESSION: 1. Left basilar airspace opacification compatible with atelectasis versus pneumonia. Possible small left pleural effusion. 2. COPD. D/ / Virgil Hernandez MD / Virgil Hernandez MD Interpreting Provider: Virgil Hernandez MD - EKG Data EKG attestation: Yes I reviewed and interpreted this EKG. EKG results narrative: 04/09/2017 at 14:45. Normal sinus rhythm with occasional PAC. Rate 93. [place] 160. QRS 88. QTC 391. No acute ST elevation or depression. Emma - Emma Situation: Demographics, MOA Background: Presenting Complaint, Relevant PMH, Meds, & Allergies Assessment: Vital Signs, Course and respsone to treatment, Exam Concerns, Patient/Family Expectation, Pertinant Lab Results Recommendation: Barrier(s) to disposition, Recommendation based on pending studies, treatments, or consults SMurali Report Given to: Moreno Carter Repor Time: 16:04
[2017-04-09 15:08] LABS: Basophils % 0.1 %; Eosinophils # 0.1 K/mcL (0.0-0.6); Eosinophils % 0.5 %; Hematocrit 46.5 % (35.3-44.9); Hemoglobin 16.2 g/dL (11.5-15.4); Immature Granulocytes % 0.6 % (0-4); Lymphocytes # 1.9 K/mcL (0.6-4.6); Lymphocytes % 13.7 %; Mean Corpuscular HGB Conc 34.8 g/dL (31.6-35.5); Mean Corpuscular Hemoglobin 31.6 pg (28.0-33.3); Mean Corpuscular Volume 90.8 fL (83.0-100.0); Mean Platelet Volume 9.4 fL (9.4-12.4); Monocytes # 1.1 K/mcL (0.0-1.3); Monocytes % 7.7 %; Platelet Count 348 K/mcL (140-400); Red Blood Count 5.12 M/mcL (3.82-4.97); Red Cell Distribution Width 12.5 % (11.5-14.5); Segmented Neutrophils % 77.4 %
[2017-04-09 15:19] LABS: Prothrombin Time 10.5 Seconds (9.4-12.1)
[2017-04-09 15:22] LABS: Alanine Aminotransferase 16 Units/L (0-55); Albumin 3.3 g/dL (3.5-5.0); Albumin/Globulin Ratio 0.9 (1.1-2.2); Alkaline Phosphatase 78 Units/L (38-126); Aspartate Amino Transferase 24 Units/L (5-34); BUN/Creatinine Ratio 24 (6-26); Bilirubin,Total 0.6 mg/dL (0.2-1.2); Blood Urea Nitrogen 16 mg/dL (7-20); Calcium 9.4 mg/dL (8.6-10.8); Carbon Dioxide 35 mEq/L (19-29); Chloride 89 mEq/L (98-109); Globulin 3.6 g/dL (2.4-3.5); Glucose 105 mg/dL (70-99); Osmolality,Calculated 278 (280-300); Potassium 3.1 mEq/L (3.5-4.5); Sodium 133 mEq/L (136-145); Total Protein 6.9 g/dL (6.0-8.3); eGFR For African Americans > 60 (> 60); eGFR For Non-African Americans > 60 (> 60)
[2017-04-09] MEDS ORDERED: Levofloxacin 750 MG/150 ML 750 MG/150 ML BAG IVPB ONE (15:38)
[2017-04-09] MEDS ORDERED: Piperacillin/Tazobactam 3.375 GM in D5% in Water (Mini-Bag+) 100 ML IVPB ONE (15:38)
[2017-04-09] MEDS ORDERED: Aspirin 325 MG TABLET PO ONE (15:56)
[2017-04-09] MEDS ORDERED: Vancomycin 750 MG in D5% in Water 250 ML IVPB SCH (16:00)
[2017-04-09] MEDS ORDERED: Vancomycin 750 MG in D5% in Water 250 ML IVPB ONE (16:10)
[2017-04-09 16:13] LABS: Bilirubin,Urine Negative (Negative); Blood,Urine Negative (Negative); Clarity,Urine Cloudy (Clear); Color,Urine Yellow (Yellow); Glucose,Urine (UA) Normal (Normal); Ketones,Urine Negative (Negative); Leukocyte Esterase,Urine Small (Negative); Nitrite,Urine Negative (Negative); PH,Urine 7.5 pH Units (5.0-8.0); Protein,Urine 100 mg/dL (Neg-Trace); Specific Gravity,Urine 1.018 (1.010-1.025); Urobilinogen,Urine Normal (Normal)
[2017-04-09 16:16] LABS: Bacteria,Urine Many per hpf (None-Few); Hyaline Casts,Urine None Seen per lpf (None-Few); Squamous Epithelial Cell,Urine Many per lpf (None-Few)
[2017-04-09] MEDS ORDERED: *HR* Promethazine 25 MG/ML VIAL IVP PRN (16:52)
[2017-04-09] MEDS ORDERED: Acetaminophen 325 MG TABLET PO PRN (16:52)
[2017-04-09] MEDS ORDERED: MOM Conc 10 ML UD.LIQ PO PRN (16:52)
[2017-04-09] MEDS ORDERED: Naloxone 0.4 MG/ML INJ IVP PRN (16:52)
[2017-04-09] MEDS ORDERED: *HR* Morphine 2 MG/ML SYRINGE IVP PRN (16:52)
[2017-04-09] MEDS ORDERED: Ondansetron 4 MG/2 ML VIAL IVP PRN (16:52)
[2017-04-09] MEDS ORDERED: *HR* HYDROcodone/Acet 5/325 mg TABLET PO PRN (16:52)
[2017-04-09] MEDS ORDERED: NON-FORMULARY MEDICATION 1 EACH EACH (Oxygen [Oxygen] 2 L) NS PRN (16:55)
[2017-04-09 16:58] LABS: Magnesium 1.4 mg/dL (1.6-2.6); Phosphorous 3.6 mg/dL (2.3-4.7)
--- NOTE | 2017-04-09 17:32 | Internal Med History&Physical ---
Date of Encounter: 04/09/17 Time of Encounter: 17:00 Assessment and Plan (1) SIRS (systemic inflammatory response syndrome) Current visit: Yes Status: Acute Admit the pt into tele Does meet SIRS criteria with Sinus tachycardia, Elevated WBC, and source of inf as UTI, PNA (2) Acute and chronic respiratory failure with hypoxia Current visit: No Status: Acute Placed her on jack prizer her resp failure - multi factorial with pneumonia / COPD exacerbation and Pleural effusion with CHF exacerbation Will start her on IV Lasix 40mg BID strict I & O fluid restriction Duoneb Q4hr maggie Cont O2.. currently requiring 3 lits.. home O2 at 2lit cont broad spec abx Zosyn (3) Acute diastolic (congestive) heart failure Current visit: Yes Status: Acute Reviewed 2 D Echo from last admission showed Normal LVEF, however does have mild diastolic dysfunction and LVH Pt was placed on PO Lasix 2 days ago, It does not look like she did take them Will start her on IV Lasix 40mg BID Cont Coreg, ASA and Statin If BP allows will start her on ACEI (4) Elevated troponin Current visit: No Status: Acute Mostly due to demand ischemia with CHF exacerbation No acute EKG changes cont trend on trop (5) Pneumonia Current visit: No Status: Acute Reviewed CXR by myself showing LLL PNA as well as vascular congestion and small Left pleural effusion Mostly bacterial PNA cont IV Abx Zosyn no need of atypical coverage now since she was treated with Levaquin on her last admission Qualifiers: Pneumonia type: due to unspecified organism Laterality: bilateral Lung location: lower lobe of lung Qualified Code(s): J18.9 - Pneumonia, unspecified organism (6) COPD with acute exacerbation Current visit: No Status: Acute triggered by Pneumonia Started on IV steroids + Bronchodilators (7) Essential hypertension Current visit: No Status: Chronic resumed home meds Hydralazine IV PRN (8) UTI (urinary tract infection) Current visit: Yes Status: Acute UA - esterase + Bacteria + cont abx Zosyn f/u on urine cx Qualifiers: Urinary tract infection type: acute cystitis Hematuria presence: without hematuria Qualified Code(s): N30.00 - Acute cystitis without hematuria Internal Medicine - H&P: HPI Chief complaint: Shortness of breath, b/l LE swelling Admitted From: Emergency Dept Plans for Post Hospital Care: Home History of present illness: Ms. Valentino is a 71 year old female with known PMH of HTN, COPD, Chronic hypoxic respiratory failure on home O2 dependent at 2 lit as needed basis, who was a former smoker quit smoking in 2010, who recently admitted here for Acute COPD exacerbation and pneumonia 10 days ago, now she presented to ER c/o progressively worsening SOB, Cough without sputum production from last 2 days. She also c/o swelling in both legs. She does c/o PND and Orthopnea too. Denied any active CP . Denied any GI / symptoms. Denied any sick contacts at home Past Med Surg Social Fam HX - Past Medical History Medical history: COPD, hypertension, osteoporosis Psychiatric history: no psych history - Past Surgical History Surgical History: orthopedic, other - Social History Smoking Status: Former smoker Smokeless Tobacco Status: No Alcohol use: none Drug use: none - Family History Mother Hx Family Cardiac Disorders: Yes Hx Family Respiratory Disorders: Yes (ephasema) Grandmother Living Status: Hx Family Cardiac Disorders: Yes Hx Family Endocrine Disorder: Yes (diabetes) Internal Medicine - H&P: Meds Albuterol Sulfate [Proair Hfa] 2 puff IH Q4H PRN 03/27/17 [History] Budesonide/Formoterol 80/4.5 [Symbicort 80/4.5] 2 puff IH BID 03/27/17 [History ] Oxygen 2 l NS AD PRN 03/27/17 [History] Aspirin Enteric Coated [Aspirin EC] 81 mg PO DAILY #30 tablet. 03/29/17 [Rx] Carvedilol [Coreg] 6.25 mg PO BIDWM #60 tablet 03/29/17 [Rx] Albuterol Neb [Proventil Neb] 2.5 mg IH Q6H PRN 04/09/17 [History] Furosemide [Lasix] 20 mg PO DAILY 04/09/17 [History] Sertraline [Zoloft] 50 mg PO DAILY 04/09/17 [History] predniSONE [PredniSONE] See Taper PO DAILY 04/09/17 [History] 3 Allergy/AdvReac Type Severity Reaction Status Date / Time naproxen [From Naprosyn] AdvReac Dizziness Verified 03/26/17 22:11 All Systems PM: A 10-system review of systems was performed and is negative for pertinent findings except as documented above in the HPI. Review of systems: Reviewed all the systems, everything is benign except the systems and symptoms I mentioned in HPI - Constitutional Vitals: Temp Pulse Resp BP Pulse Ox 98.6 F 92 18 167/113 93 04/09/17 14:35 04/09/17 16:30 04/09/17 16:30 04/09/17 16:30 04/09/17 16:30 General appearance: Present: mild distress (able to finish full sentence with out any pause), A&O X 3, answers questions appropriately - Head Head exam: Present: atraumatic, normal inspection - Neck Neck exam general surgery: Present: supple - Respiratory Respiratory exam: Present: decreased breath sounds, rales (few rales at basal regions), respiratory distress (mild), wheezes (moderate). Absent: rhonchi - Cardiovascular Cardiovascular exam: Present: RRR, +S1, +S2. Absent: gallop, systolic murmur - GI/Abdominal GI/Abdominal exam: Present: normal bowel sounds, soft. Absent: distended, rebound, rigid, tenderness - Extremities Exam Extremities exam: Present: pedal edema (2+). Absent: calf tenderness, tenderness - Back Exam Back exam: Absent: CVA tenderness (L), CVA tenderness (R) - Neurological Exam Neurological exam: Present: alert, oriented X3, no focal deficits - Psychiatric Psychiatric exam: Present: normal affect, normal mood - Skin Skin exam: Present: dry. Absent: rash Internal Med - H&P Results - Labs CBC & Chem 7: 04/09/17 14:56 04/09/17 14:56
[2017-04-09] MEDS: MethylPREDNISolone 40 MG/ML VIAL IVP SCH (18:42)
[2017-04-09] MEDS: Furosemide 40 MG/4 ML VIAL IVP SCH (18:46)
[2017-04-09] MEDS: Ipratropium/Albuterol Neb 3 ML IH SCH ×2 (20:09→23:34)
[2017-04-09] MEDS: Budesonide/Formoterol 80/4.5 MDI IH SCH (20:09)
[2017-04-10] MEDS ORDERED: Piperacillin/Tazobactam 3.375 GM in D5% in Water (Mini-Bag+) 100 ML IVPB SCH
[2017-04-10] MEDS: Ipratropium/Albuterol Neb 3 ML IH SCH ×6 (04:13→23:15)
[2017-04-10 04:58] LABS: Basophils % 0.1 %; Hematocrit 46.3 % (35.3-44.9); Hemoglobin 16.3 g/dL (11.5-15.4); Immature Granulocytes % 0.9 % (0-4); Lymphocytes # 0.6 K/mcL (0.6-4.6); Lymphocytes % 5.1 %; Mean Corpuscular HGB Conc 35.2 g/dL (31.6-35.5); Mean Platelet Volume 9.5 fL (9.4-12.4); Monocytes # 0.3 K/mcL (0.0-1.3); Monocytes % 2.9 %; Neutrophils # 9.7 K/mcL (1.6-8.9); Platelet Count 302 K/mcL (140-400); Red Blood Count 5.09 M/mcL (3.82-4.97); Red Cell Distribution Width 12.5 % (11.5-14.5)
[2017-04-10 05:17] LABS: BUN/Creatinine Ratio 26 (6-26); Blood Urea Nitrogen 19 mg/dL (7-20); Calcium 8.8 mg/dL (8.6-10.8); Carbon Dioxide 34 mEq/L (19-29); Chloride 88 mEq/L (98-109); Glucose 122 mg/dL (70-99); Osmolality,Calculated 280 (280-300); Potassium 3.5 mEq/L (3.5-4.5); Sodium 133 mEq/L (136-145); eGFR For African Americans > 60 (> 60); eGFR For Non-African Americans > 60 (> 60)
[2017-04-10] MEDS: *HR* Enoxaparin 40 MG/0.4 ML SYRINGE SQ SCH (05:49)
[2017-04-10] MEDS: MethylPREDNISolone 40 MG/ML VIAL IVP SCH ×2 (05:49→17:25)
[2017-04-10] MEDS: Budesonide/Formoterol 80/4.5 MDI IH SCH ×2 (08:42→19:26)
[2017-04-10] MEDS: Aspirin Enteric Coated 81 MG Tablet PO SCH (08:44)
[2017-04-10] MEDS: Furosemide 40 MG/4 ML VIAL IVP SCH ×2 (08:44→17:25)
--- NOTE | 2017-04-10 09:30 | Internal Med Progress Note ---
Date of Encounter: 04/10/17 Time of Encounter: 09:29 - Assessment and plan (1) SIRS (systemic inflammatory response syndrome) Current Visit: Yes Status: Acute Assessment and plan: Improving (2) Acute and chronic respiratory failure with hypoxia Current Visit: No Status: Acute Assessment and plan: Cont on tele Still on 3 lit O2 cont Duoneb + Abx + O2 + Steroids (3) Acute diastolic (congestive) heart failure Current Visit: Yes Status: Acute Assessment and plan: BNP slightly better today Cont IV Lasix Strict I & O Cont BB..Will add ACEI (4) Elevated troponin Current Visit: No Status: Acute Assessment and plan: Due to CHF exacerbation trending down no further work needed (5) Pneumonia Current Visit: No Status: Acute Assessment and plan: mostly bacterial cont Zosyn.. finished Levaquin recently Qualifiers: Pneumonia type: due to unspecified organism Laterality: bilateral Lung location: lower lobe of lung Qualified Code(s): J18.9 - Pneumonia, unspecified organism (6) COPD with acute exacerbation Current Visit: No Status: Acute Assessment and plan: Cont Solumedrol 40mg BID Cont Duoneb maggie (7) Essential hypertension Current Visit: No Status: Chronic Assessment and plan: fairly controlled cont home dose BB, will add Lisinopril 10mg cont Hydralazine PRN (8) UTI (urinary tract infection) Current Visit: Yes Status: Acute Assessment and plan: waiting on Urine Cx on Zosyn Qualifiers: Urinary tract infection type: acute cystitis Hematuria presence: without hematuria Qualified Code(s): N30.00 - Acute cystitis without hematuria - Subjective Interval history: Ms. Valentino is a 71 year old female with known PMH of HTN, COPD, Chronic hypoxic respiratory failure on home O2 dependent at 2 lit as needed basis, who was a former smoker quit smoking in 2010, who recently admitted here for Acute COPD exacerbation and pneumonia 10 days ago, now she presented to ER c/o progressively worsening SOB, Cough without sputum production from last 2 days. She also c/o swelling in both legs. She does c/o PND and Orthopnea too. She was admitted in the hospital and started her on empirical abx Zosyn and IV diuresis. She is feeling better today. b/l LE edema also improved. Denied any CP. Still has moderate SOB / MCKEON - Constitutional Vitals: Temp Pulse Resp BP Pulse Ox 98.1 F 98 18 153/110 92 04/10/17 07:01 04/10/17 07:01 04/10/17 08:47 04/10/17 07:01 04/10/17 08:47 General appearance: Present: A&O X 3, answers questions appropriately - Head Head exam: Present: atraumatic, normal inspection - Respiratory Respiratory exam: Present: decreased breath sounds, wheezes. Absent: rales, respiratory distress, rhonchi - Cardiovascular Cardiovascular exam: Present: +S1, +S2, tachycardia. Absent: systolic murmur - GI/Abdominal GI/Abdominal exam: Present: normal bowel sounds, soft. Absent: rebound, rigid, tenderness - Extremities Exam Extremities exam: Present: pedal edema (improving). Absent: calf tenderness, tenderness - Back Exam Back exam: Absent: CVA tenderness (L), CVA tenderness (R) - Neurological Exam Neurological exam: Present: alert, oriented X3 - Psychiatric Psychiatric exam: Present: normal affect, normal mood Internal Medicine: Result - Labs CBC & Chem 7: 04/10/17 04:27 04/10/17 04:27 Labs: Short CBC 04/10/17 Range/Units 04:27 WBC 10.7 (4.3-11.1) K/mcL Hgb 16.3 H (11.5-15.4) g/dL Hct 46.3 H (35.3-44.9) % Plt Count 302 (140-400) K/mcL Neutrophils # 9.7 H (1.6-8.9) K/mcL BMP 04/10/17 04:27 Sodium 133 L Potassium 3.5 Chloride 88 L Carbon Dioxide 34 H BUN 19 Creatinine 0.74 Glucose 122 H Calcium 8.8 Cardiac Enzymes 04/09/17 04/10/17 Range/Units 22:03 04:27 Troponin I 0.08 H* 0.05 H* (0-0.03) ng/mL - ABG Interpretation ABG results: PT/INR, D-dimer PT 10.5 Seconds (9.4-12.1) 04/09/17 14:56 Consult Discharge Plan - Plan Referrals: Ben Hogan DO [Primary Care Provider] - 04/28/17 10:45 am
[2017-04-10] MEDS ORDERED: GI Cocktail 40 ML EACH PO ONE (17:26)
[2017-04-10] MEDS: Pantoprazole 40 MG VIAL IVP SCH (18:46)
--- NOTE | 2017-04-10 19:08 | Electrocardiograph Report ---
[address] [address] Test Date: 2017-04-09 Pat Name: Jonelle Valentino Department: 103 Room: 2NE28 Gender: F Credit Verifier: MSC : [id number] Requested By: Clovis Calabrese Order Number: [id number] Reading MD: Flash San MD Measurements Intervals [place] Rate: 93 P: 75 LA: 160 QRS: -40 QRSD: 88 T: 86 QT: 340 QTc: 391 Interpretive Statements SINUS RHYTHM WITH OCCASIONAL SUPRAVENTRICULAR PREMATURE COMPLEXES Poor R wave progression RIGHT ATRIAL ENLARGEMENT LEFT ATRIAL ENLARGEMENT MARKED LEFT AXIS DEVIATION Electronically Signed On 04-10-2017 19:06:47 EDT by Flash San MD
[2017-04-11 04:11] LABS: Basophils % 0.1 %; Hematocrit 41.2 % (35.3-44.9); Immature Granulocytes % 0.7 % (0-4); Lymphocytes # 0.4 K/mcL (0.6-4.6); Lymphocytes % 2.6 %; Mean Corpuscular HGB Conc 34.7 g/dL (31.6-35.5); Mean Corpuscular Hemoglobin 32.1 pg (28.0-33.3); Mean Corpuscular Volume 92.6 fL (83.0-100.0); Monocytes # 0.3 K/mcL (0.0-1.3); Monocytes % 1.8 %; Neutrophils # 13.9 K/mcL (1.6-8.9); Platelet Count 270 K/mcL (140-400); Red Blood Count 4.45 M/mcL (3.82-4.97); Red Cell Distribution Width 12.7 % (11.5-14.5); Segmented Neutrophils % 94.8 %
[2017-04-11 04:23] LABS: BUN/Creatinine Ratio 36 (6-26); Blood Urea Nitrogen 28 mg/dL (7-20); Calcium 7.9 mg/dL (8.6-10.8); Carbon Dioxide 36 mEq/L (19-29); Chloride 87 mEq/L (98-109); Glucose 130 mg/dL (70-99); Osmolality,Calculated 281 (280-300); Potassium 3.6 mEq/L (3.5-4.5); Sodium 132 mEq/L (136-145); eGFR For African Americans > 60 (> 60); eGFR For Non-African Americans > 60 (> 60)
[2017-04-11] MEDS: Ipratropium/Albuterol Neb 3 ML IH SCH ×5 (04:31→20:23)
[2017-04-11 04:34] LABS: Hemoglobin 14.3 g/dL (11.5-15.4)
[2017-04-11] MEDS: Pantoprazole 40 MG VIAL IVP SCH (05:41)
[2017-04-11] MEDS: MethylPREDNISolone 40 MG/ML VIAL IVP SCH (05:41)
[2017-04-11] MEDS: *HR* Enoxaparin 40 MG/0.4 ML SYRINGE SQ SCH (05:41)
[2017-04-11] MEDS: Budesonide/Formoterol 80/4.5 MDI IH SCH ×2 (08:03→20:22)
[2017-04-11] MEDS: Aspirin Enteric Coated 81 MG Tablet PO SCH (08:44)
[2017-04-11] MEDS: Furosemide 40 MG/4 ML VIAL IVP SCH (08:44)
--- NOTE | 2017-04-11 14:54 | Internal Med Progress Note ---
Date of Encounter: 04/11/17 Time of Encounter: 14:20 - Assessment and plan (1) SIRS (systemic inflammatory response syndrome) Current Visit: Yes Status: Acute Assessment and plan: Improving WBC slightly elevated today mostly due to reactive with steroids (2) Acute and chronic respiratory failure with hypoxia Current Visit: No Status: Acute Assessment and plan: Cont on tele Currently on 4 lit O2..cont weaning her off O2 to 2 lit cont Duoneb + Abx + O2 + Steroids (3) Acute diastolic (congestive) heart failure Current Visit: Yes Status: Acute Assessment and plan: Improving switched to PO Lasix Strict I & O Cont BB..Will add ACEI (4) Elevated troponin Current Visit: No Status: Acute Assessment and plan: Due to CHF exacerbation trending down no further work needed (5) Pneumonia Current Visit: No Status: Acute Assessment and plan: mostly bacterial cont Zosyn.. finished Levaquin recently Qualifiers: Pneumonia type: due to unspecified organism Laterality: bilateral Lung location: lower lobe of lung Qualified Code(s): J18.9 - Pneumonia, unspecified organism (6) COPD with acute exacerbation Current Visit: No Status: Acute Assessment and plan: Cont Solumedrol 40mg BID Cont Duoneb maggie (7) Essential hypertension Current Visit: No Status: Chronic Assessment and plan: fairly controlled Inc Coreg to 12.5mg BID, Inc Lisinopril to 10mg cont Hydralazine PRN (8) UTI (urinary tract infection) Current Visit: Yes Status: Acute Assessment and plan: Urine Cx no growth so far on Zosyn Qualifiers: Urinary tract infection type: acute cystitis Hematuria presence: without hematuria Qualified Code(s): N30.00 - Acute cystitis without hematuria - Subjective Interval history: Ms. Valentino is a 71 year old female with known PMH of HTN, COPD, Chronic hypoxic respiratory failure on home O2 dependent at 2 lit as needed basis, who was a former smoker quit smoking in 2010, who recently admitted here for Acute COPD exacerbation and pneumonia 10 days ago, now she presented to ER c/o progressively worsening SOB, Cough without sputum production from last 2 days. She also c/o swelling in both legs. She does c/o PND and Orthopnea too. She was admitted in the hospital and started her on empirical abx Zosyn and IV diuresis. She is feeling better today. b/l LE edema also improved. Denied any CP.She feels like she is almost at her baseline. - Constitutional Vitals: Temp Pulse Resp BP Pulse Ox 97.9 F 97 20 157/104 95 04/11/17 07:00 04/11/17 07:00 04/11/17 11:10 04/11/17 07:00 04/11/17 11:10 General appearance: Present: A&O X 3, answers questions appropriately - Head Head exam: Present: atraumatic, normal inspection - Neck Neck exam general surgery: Present: supple - Respiratory Respiratory exam: Present: decreased breath sounds, wheezes (moderate). Absent : rales, respiratory distress, rhonchi - Cardiovascular Cardiovascular exam: Present: RRR, +S1, +S2. Absent: systolic murmur - GI/Abdominal GI/Abdominal exam: Present: normal bowel sounds, soft. Absent: rebound, rigid, tenderness - Extremities Exam Extremities exam: Present: pedal edema (Improved). Absent: calf tenderness, tenderness - Neurological Exam Neurological exam: Present: alert, oriented X3 - Psychiatric Psychiatric exam: Present: normal affect, normal mood Internal Medicine: Result - Labs CBC & Chem 7: 04/11/17 03:19 04/11/17 03:19 Labs: Short CBC 04/11/17 Range/Units 03:19 WBC 14.7 H (4.3-11.1) K/mcL Hgb 14.3 D (11.5-15.4) g/dL Hct 41.2 (35.3-44.9) % Plt Count 270 (140-400) K/mcL Neutrophils # 13.9 H (1.6-8.9) K/mcL BMP 04/11/17 03:19 Sodium 132 L Potassium 3.6 Chloride 87 L Carbon Dioxide 36 H BUN 28 H Creatinine 0.77 Glucose 130 H Calcium 7.9 L - ABG Interpretation ABG results: PT/INR, D-dimer PT 10.5 Seconds (9.4-12.1) 04/09/17 14:56 Consult Discharge Plan - Plan Referrals: Ben Hogan DO [Primary Care Provider] - 04/28/17 10:45 am
--- NOTE | 2017-04-11 18:22 | Electrocardiograph Report ---
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
[2017-04-12] MEDS: Ipratropium/Albuterol Neb 3 ML IH SCH ×7 (00:05→23:13)
[2017-04-12] MEDS: *HR* Enoxaparin 40 MG/0.4 ML SYRINGE SQ SCH (06:17)
[2017-04-12] MEDS: Aspirin Enteric Coated 81 MG Tablet PO SCH (08:38)
[2017-04-12] MEDS: Budesonide/Formoterol 80/4.5 MDI IH SCH ×2 (08:42→19:46)
[2017-04-12] MEDS ORDERED: Furosemide 40 MG TABLET PO SCH (09:00)
[2017-04-12] MEDS ORDERED: MethylPREDNISolone 40 MG/ML VIAL IVP SCH (09:00)
--- NOTE | 2017-04-12 09:17 | Internal Med Progress Note ---
Date of Encounter: 04/12/17 Time of Encounter: 09:14 - Assessment and plan (1) SIRS (systemic inflammatory response syndrome) Current Visit: Yes Status: Acute Assessment and plan: Improving (2) Acute and chronic respiratory failure with hypoxia Current Visit: No Status: Acute Assessment and plan: Cont on tele Currently on 4 lit O2..cont weaning her off O2 to 2 lit will repeat another CXR today encourage more frequent incentive spirometry cont Duoneb + Abx + O2 + Steroids (3) Acute diastolic (congestive) heart failure Current Visit: Yes Status: Acute Assessment and plan: Improving Cont PO Lasix Strict I & O Cont BB and ACEI (4) Elevated troponin Current Visit: No Status: Acute Assessment and plan: Due to CHF exacerbation trended down no further work needed (5) Pneumonia Current Visit: No Status: Acute Assessment and plan: mostly bacterial cont Zosyn.. finished Levaquin recently Qualifiers: Pneumonia type: due to unspecified organism Laterality: bilateral Lung location: lower lobe of lung Qualified Code(s): J18.9 - Pneumonia, unspecified organism (6) COPD with acute exacerbation Current Visit: No Status: Acute Assessment and plan: Cont Solumedrol 40mg BID Cont Duoneb maggie (7) Essential hypertension Current Visit: No Status: Chronic Assessment and plan: well controlled with Coreg to 12.5mg BID and Lisinopril to 10mg cont Hydralazine PRN (8) UTI (urinary tract infection) Current Visit: Yes Status: Acute Assessment and plan: Urine Cx no growth so far on Zosyn Qualifiers: Urinary tract infection type: acute cystitis Hematuria presence: without hematuria Qualified Code(s): N30.00 - Acute cystitis without hematuria - Subjective Interval history: Ms. Valentino is a 71 year old female with known PMH of HTN, COPD, Chronic hypoxic respiratory failure on home O2 dependent at 2 lit as needed basis, who was a former smoker quit smoking in 2010, who recently admitted here for Acute COPD exacerbation and pneumonia 10 days ago, now she presented to ER c/o progressively worsening SOB, Cough without sputum production from last 2 days. She also c/o swelling in both legs. She does c/o PND and Orthopnea too. She was admitted in the hospital and started her on empirical abx Zosyn and IV diuresis. Clinically she is feeling better today. b/l LE edema also improved. Denied any CP.She feels like she is almost at her baseline. However her O2 requirement is still at 4 lit through [place] - Constitutional Vitals: Temp Pulse Resp BP Pulse Ox 98.4 F 70 16 133/70 94 04/12/17 06:44 04/12/17 06:44 04/12/17 06:44 04/12/17 06:44 04/12/17 06:44 General appearance: Present: A&O X 3, no acute distress, answers questions appropriately - Head Head exam: Present: atraumatic, normal inspection - Respiratory Respiratory exam: Present: decreased breath sounds, wheezes (moderate). Absent : rales, respiratory distress, rhonchi - Cardiovascular Cardiovascular exam: Present: RRR, +S1, +S2. Absent: tachycardia - GI/Abdominal GI/Abdominal exam: Present: normal bowel sounds, soft. Absent: rebound, rigid, tenderness - Extremities Exam Extremities exam: Present: pedal edema (improved). Absent: calf tenderness, tenderness - Back Exam Back exam: Absent: CVA tenderness (L), CVA tenderness (R) - Neurological Exam Neurological exam: Present: alert, oriented X3 - Psychiatric Psychiatric exam: Present: normal affect, normal mood Internal Medicine: Result - Labs CBC & Chem 7: 04/11/17 03:19 04/11/17 03:19 - ABG Interpretation ABG results: PT/INR, D-dimer PT 10.5 Seconds (9.4-12.1) 04/09/17 14:56 Consult Discharge Plan - Plan Referrals: Ben Hogan DO [Primary Care Provider] - 04/28/17 10:45 am
[2017-04-13 03:01] LABS: Basophils % 0.1 %; Eosinophils % 0.1 %; Hematocrit 39.4 % (35.3-44.9); Hemoglobin 13.5 g/dL (11.5-15.4); Immature Granulocytes % 0.7 % (0-4); Lymphocytes # 1.3 K/mcL (0.6-4.6); Lymphocytes % 8.9 %; Mean Corpuscular HGB Conc 34.3 g/dL (31.6-35.5); Mean Corpuscular Hemoglobin 31.6 pg (28.0-33.3); Mean Corpuscular Volume 92.3 fL (83.0-100.0); Mean Platelet Volume 9.7 fL (9.4-12.4); Monocytes # 0.9 K/mcL (0.0-1.3); Monocytes % 6.3 %; Neutrophils # 12.2 K/mcL (1.6-8.9); Platelet Count 205 K/mcL (140-400); Red Blood Count 4.27 M/mcL (3.82-4.97); Red Cell Distribution Width 12.5 % (11.5-14.5); Segmented Neutrophils % 83.9 %
[2017-04-13 03:14] LABS: BUN/Creatinine Ratio 35 (6-26); Blood Urea Nitrogen 19 mg/dL (7-20); Calcium 7.9 mg/dL (8.6-10.8); Carbon Dioxide 35 mEq/L (19-29); Chloride 88 mEq/L (98-109); Glucose 93 mg/dL (70-99); Magnesium 1.5 mg/dL (1.6-2.6); Osmolality,Calculated 272 (280-300); Potassium 3.2 mEq/L (3.5-4.5); Sodium 130 mEq/L (136-145); eGFR For African Americans > 60 (> 60); eGFR For Non-African Americans > 60 (> 60)
[2017-04-13] MEDS: Ipratropium/Albuterol Neb 3 ML IH SCH ×3 (03:53→11:37)
[2017-04-13] MEDS ORDERED: Melatonin 3 MG TABLET PO PRN (04:38)
[2017-04-13] MEDS: *HR* Enoxaparin 40 MG/0.4 ML SYRINGE SQ SCH (06:22)
[2017-04-13] MEDS: Budesonide/Formoterol 80/4.5 MDI IH SCH (07:40)
[2017-04-13] MEDS ORDERED: Furosemide 20 MG TABLET PO SCH (08:40)
[2017-04-13] MEDS ORDERED: predniSONE 20 MG TABLET PO SCH (09:00)
[2017-04-13] MEDS: Aspirin Enteric Coated 81 MG Tablet PO SCH (09:00)
[2017-04-13 11:17] VITALS: BP 98/62
--- NOTE | 2017-04-13 11:25 | Discharge Summary ---
Date of Encounter: 04/13/17 Time of Encounter: 11:21 - Discharge Diagnosis (1) SIRS (systemic inflammatory response syndrome) Priority: Primary Status: Acute (2) Acute and chronic respiratory failure with hypoxia Priority: Primary Status: Acute (3) Acute diastolic (congestive) heart failure Priority: Primary Status: Acute (4) Elevated troponin Priority: Secondary Status: Acute (5) Pneumonia Priority: Secondary Status: Acute Qualifiers: Pneumonia type: due to unspecified organism Laterality: bilateral Lung location: lower lobe of lung Qualified Code(s): J18.9 - Pneumonia, unspecified organism (6) COPD with acute exacerbation Priority: Secondary Status: Acute (7) Essential hypertension Priority: Secondary Status: Chronic (8) UTI (urinary tract infection) Priority: Secondary Status: Ruled-out Qualifiers: Urinary tract infection type: acute cystitis Hematuria presence: without hematuria Qualified Code(s): N30.00 - Acute cystitis without hematuria - Discharge Medications Prescriptions: Amoxicillin/Clavulanate [Augmentin] 875 mg PO BIDWM #6 tablet Carvedilol [Coreg] 12.5 mg PO BIDWM 30 Days tablet Lisinopril [Zestril] 10 mg PO DAILY #30 tablet predniSONE [PredniSONE] 40 mg PO DAILY #10 tablet Home Medications: Albuterol Sulfate [Proair Hfa] 2 puff IH Q4H PRN 03/27/17 [History] Budesonide/Formoterol 80/4.5 [Symbicort 80/4.5] 2 puff IH BID 03/27/17 [History ] Aspirin Enteric Coated [Aspirin EC] 81 mg PO DAILY #30 tablet. 03/29/17 [Rx] Albuterol Neb [Proventil Neb] 2.5 mg IH Q6H PRN 04/09/17 [History] Furosemide [Lasix] 20 mg PO DAILY 04/09/17 [History] Sertraline [Zoloft] 50 mg PO DAILY 04/09/17 [History] Amoxicillin/Clavulanate [Augmentin] 875 mg PO BIDWM #6 tablet 04/13/17 [Rx] Carvedilol [Coreg] 12.5 mg PO BIDWM 30 Days tablet 04/13/17 [Rx] Lisinopril [Zestril] 10 mg PO DAILY #30 tablet 04/13/17 [Rx] Oxygen 3 l NS AD PRN #0 04/13/17 [Rx] predniSONE [PredniSONE] 40 mg PO DAILY #10 tablet 04/13/17 [Rx] Allergies/Adverse Reactions: 3 Allergy/AdvReac Type Severity Reaction Status Date / Time naproxen [From Naprosyn] AdvReac Dizziness Verified 03/26/17 22:11 Procedures/tests Complete & Pending: Procedures Performed prior 72 hours Category Date Time Status ECG 12 lead ECG [ECG] Routine Y 04/10/17 10:44 Completed Date of admission: 04/09/17 16:52 Primary care physician: Ben Hogan, - Patient Status Disposition: Home Health Service Condition: Good Overall status at discharge: patient is back to baseline - Discharge Instructions Instructions: Lisinopril (By mouth), Prednisone (By mouth), Amoxicillin/ Clavulanate Potassium (By mouth), Carvedilol (By mouth), Heart Failure (DC), Chest Pain (DC), Urinary Tract Infection in Women (DC), Chronic Obstructive Pulmonary Disease (DC), Chronic Hypertension (DC), Pneumonia (DC) Follow Up With: Ben Hogan DO [Primary Care Provider] - 04/28/17 10:45 am - Diet and Activity Activity: as per physical therapy, increase activity as tolerated Diet: low salt diet Hospital course: Ms. Valentino is a 71 year old female with known PMH of HTN, COPD, Chronic hypoxic respiratory failure on home O2 dependent at 2 lit as needed basis, who was a former smoker quit smoking in 2010, who recently admitted here for Acute COPD exacerbation and pneumonia 10 days ago, now she presented to ER c/o progressively worsening SOB, Cough without sputum production from last 2 days. She also c/o swelling in both legs. She does c/o PND and Orthopnea too. She was admitted in the hospital and started her on empirical abx Zosyn and IV diuresis. Her symptoms started improving slowly. She remained afebrile. Her blood cx, urine cx - did not show any bacteria. Her b/l LE edema also improved. She feels like she is almost at her baseline. However her O2 requirement is still at 3 lit through [place]. We did ambulating pulse oxy study, she does need 3 lit O2 continuously with advanced the ambulation as she tolerated. Will send her home with Home health servies and Home PT / OT. Also will arrange for 3 lit o2, she was on 2 lit home O2 before. - Time Spent with Patient Total time spent providing and/or coordinating discharge services: - Constitutional Vitals: Temp Pulse Resp BP Pulse Ox 98.1 F 75 12 98/62 90 04/13/17 11:13 04/13/17 11:13 04/13/17 11:13 04/13/17 11:13 04/13/17 11:13 General appearance: Present: A&O X 3, no acute distress, answers questions appropriately - Head Head exam: Present: atraumatic, normal inspection - Respiratory Respiratory exam: Present: decreased breath sounds, wheezes (mild). Absent: rales, respiratory distress, rhonchi - Cardiovascular Cardiovascular exam: Present: RRR, +S1, +S2. Absent: diastolic murmur, gallop, rubs, systolic murmur - GI/Abdominal GI/Abdominal exam: Present: normal bowel sounds, soft, no peritoneal signs. Absent: distended, tenderness - Extremities Exam Extremities exam: Absent: calf tenderness, pedal edema, tenderness - Back Exam Back exam: Absent: CVA tenderness (L), CVA tenderness (R) - Neurological Exam Neurological exam: Present: alert, oriented X3 - Psychiatric Psychiatric exam: Present: normal affect, normal mood
--- NOTE | 2017-04-13 11:27 | Physician Discharge Referral ---
Home Health/Hosp Referral Info Transfer to: Home Health Provider in Charge Post Discharge: PCP - Diagnosis (1) SIRS (systemic inflammatory response syndrome) Status: Acute (2) Acute and chronic respiratory failure with hypoxia Status: Acute (3) Acute diastolic (congestive) heart failure Status: Acute (4) Elevated troponin Status: Acute (5) Pneumonia Status: Acute (6) COPD with acute exacerbation Status: Acute (7) Essential hypertension Status: Chronic (8) UTI (urinary tract infection) Status: Ruled-out - Respiratory Orders Smoking Cessation: Smoking cessation has been advised. For more information, call the [place] [employer] Quit Line at [phone]-BMTLNOW. - Services Needed Following services are medically necessary services: Nursing, Physical Therapy, Occupational Therapy - Transfer Medications Prescriptions: Amoxicillin/Clavulanate [Augmentin] 875 mg PO BIDWM #6 tablet Carvedilol [Coreg] 12.5 mg PO BIDWM 30 Days tablet Lisinopril [Zestril] 10 mg PO DAILY #30 tablet predniSONE [PredniSONE] 40 mg PO DAILY #10 tablet Home Medications: Albuterol Sulfate [Proair Hfa] 2 puff IH Q4H PRN 03/27/17 [History] Budesonide/Formoterol 80/4.5 [Symbicort 80/4.5] 2 puff IH BID 03/27/17 [History ] Aspirin Enteric Coated [Aspirin EC] 81 mg PO DAILY #30 tablet. 03/29/17 [Rx] Albuterol Neb [Proventil Neb] 2.5 mg IH Q6H PRN 04/09/17 [History] Furosemide [Lasix] 20 mg PO DAILY 04/09/17 [History] Sertraline [Zoloft] 50 mg PO DAILY 04/09/17 [History] Amoxicillin/Clavulanate [Augmentin] 875 mg PO BIDWM #6 tablet 04/13/17 [Rx] Carvedilol [Coreg] 12.5 mg PO BIDWM 30 Days tablet 04/13/17 [Rx] Lisinopril [Zestril] 10 mg PO DAILY #30 tablet 04/13/17 [Rx] Oxygen 3 l NS AD PRN #0 04/13/17 [Rx] predniSONE [PredniSONE] 40 mg PO DAILY #10 tablet 04/13/17 [Rx] Allergies/Adverse Reactions: 3 Allergy/AdvReac Type Severity Reaction Status Date / Time naproxen [From Naprosyn] AdvReac Dizziness Verified 03/26/17 22:11 Certification: Further, I certify that my clinical findings support that this patient is homebound (i.e. absences from home require considerable and taxing effort and are for medical reasons or [employer] services or infrequently or short duration when for other reasons) because: Homebound Reason: Patient requires assistance of a person or device to safely leave home Attestation: My signature below is to certify that this patient is under my care and that I, or nurse practitioner, or a physician's assistant activities director working with me, has a face-to -face encounter with this patient.
== END 2017-04-13 14:51 | disposition home health service (06) | DRG 291 ==
LOC: 2NENU 14:34 → EMEROO 14:34 → SUATTDRO 16:52 → 2NENU 17:30
PROVIDERS: ADMIT Internal Medicine; ATTEND Family Medicine

== ENCOUNTER 2018-12-31 22:39 | Observation (INO) ==
[2018-12-31] MEDS ORDERED: Furosemide 40 MG/4 ML VIAL IVP ONE (23:16)
[2018-12-31] MEDS ORDERED: methylPREDNISolone 125 MG/2 ML VIAL IVP ONE (23:16)
[2018-12-31] MEDS ORDERED: Ipratropium/Albuterol Neb 3 ML IH ONE (23:16)
[2018-12-31 23:38] LABS: ABG Base Excess 5 mEq/L (-2 to 3); ABG HCO3 29 mEq/L (21-27); ABG Oxygen Saturation 93 % (95-98); ABG PCO2 42 mmHg (35-45); ABG PH 7.45 pH Units (7.32-7.45); ABG PO2 65 mmHg (85-104); ABG TCO2 31 mEq/L (20-26)
[2019-01-01 00:18] LABS: Basophils % 0.2 %; Eosinophils % 0.3 %; Hematocrit 40.5 % (35.3-44.9); Hemoglobin 13.7 g/dL (11.5-15.4); Immature Granulocytes % 0.3 % (0-4); Lymphocytes # 1.3 K/mcL (0.6-4.6); Lymphocytes % 14.1 %; Mean Corpuscular HGB Conc 33.8 g/dL (31.6-35.5); Mean Corpuscular Hemoglobin 31.4 pg (28.0-33.3); Mean Corpuscular Volume 92.7 fL (83.0-100.0); Mean Platelet Volume 9.9 fL (9.4-12.4); Monocytes # 0.7 K/mcL (0.0-1.3); Monocytes % 7.8 %; Neutrophils # 7.2 K/mcL (1.6-8.9); Platelet Count 282 K/mcL (140-400); Red Blood Count 4.37 M/mcL (3.82-4.97); Segmented Neutrophils % 77.3 %; White Blood Count 9.3 K/mcL (4.3-11.1)
[2019-01-01 00:41] LABS: Alanine Aminotransferase 11 Units/L (7-52); Albumin 3.9 g/dL (3.5-5.7); Albumin/Globulin Ratio 1.3 (1.1-2.2); Alkaline Phosphatase 68 Units/L (34-104); Aspartate Amino Transferase 23 Units/L (13-39); BUN/Creatinine Ratio 23 (6-26); Bilirubin,Direct 0.2 mg/dL (0.0-0.2); Bilirubin,Indirect 0.6 mg/dL (0.0-1.2); Bilirubin,Total 0.8 mg/dL (0.3-1.0); Blood Urea Nitrogen 15 mg/dL (8-23); Calcium 8.9 mg/dL (8.6-10.3); Carbon Dioxide 26 mEq/L (23-29); Chloride 94 mEq/L (98-107); Glucose 117 mg/dL (70-105); Osmolality,Calculated 272 (280-300); Potassium 3.9 mEq/L (3.5-5.1); Sodium 130 mEq/L (136-145); Total Protein 6.9 g/dL (6.4-8.9); eGFR For African Americans > 60 (> 60); eGFR For Non-African Americans > 60 (> 60)
[2019-01-01 00:55] LABS: Troponin I 0.05 ng/mL (< 0.04)
[2019-01-01 01:33] LABS: Bilirubin,Urine Negative (Negative); Blood,Urine Negative (Negative); Clarity,Urine Clear (Clear); Color,Urine Yellow (Yellow); Glucose,Urine (UA) Normal (Normal); Ketones,Urine Negative (Negative); Leukocyte Esterase,Urine Small (Negative); Nitrite,Urine Negative (Negative); Protein,Urine 30 mg/dL (Neg-Trace); Specific Gravity,Urine 1.008 (1.010-1.025); Urobilinogen,Urine Normal (Normal)
[2019-01-01 01:36] LABS: Bacteria,Urine None Seen per hpf (None-Few); Hyaline Casts,Urine None Seen per lpf (None-Few); RBC,Urine 0-3 per hpf (0-3); Squamous Epithelial Cell,Urine Many per lpf (None-Few)
[2019-01-01] MEDS ORDERED: Isovue-370 500 ML BOTTLE IVP ONE (01:38)
[2019-01-01] MEDS ORDERED: Naloxone 0.4 MG/ML INJ IVP PRN (09:19)
[2019-01-01] MEDS ORDERED: Ondansetron 4 MG/2 ML VIAL IVP PRN (09:25)
[2019-01-01] MEDS ORDERED: Acetaminophen 325 MG TABLET PO PRN (09:25)
[2019-01-01] MEDS ORDERED: NON-FORMULARY MEDICATION 1 EACH EACH (Oxygen 3 L) NS PRN (09:29)
[2019-01-01] MEDS: Ipratropium/Albuterol Neb 3 ML IH SCH ×5 (10:33→23:42)
[2019-01-01] MEDS: Budesonide/Formoterol 160/4.5 1 PUFF INH IH SCH ×2 (10:33→19:44)
[2019-01-01] MEDS: Aspirin Enteric Coated 81 MG Tablet PO SCH (10:47)
[2019-01-01] MEDS: MethylPREDNISolone 40 MG/ML VIAL IVP SCH ×3 (10:47→23:17)
[2019-01-01] MEDS: *HR* HYDROcodone/Acet 5/325 mg TABLET PO PRN ×2 (10:47→16:49)
[2019-01-01] MEDS: Furosemide 20 MG TABLET PO SCH (10:47)
[2019-01-02 02:56] LABS: Basophils % 0.1 %; Hematocrit 42.2 % (35.3-44.9); Hemoglobin 14.1 g/dL (11.5-15.4); Immature Granulocytes % 0.5 % (0-4); Lymphocytes # 0.4 K/mcL (0.6-4.6); Lymphocytes % 3.2 %; Mean Corpuscular HGB Conc 33.4 g/dL (31.6-35.5); Mean Corpuscular Hemoglobin 31.5 pg (28.0-33.3); Mean Corpuscular Volume 94.2 fL (83.0-100.0); Mean Platelet Volume 9.9 fL (9.4-12.4); Monocytes # 0.3 K/mcL (0.0-1.3); Monocytes % 2.1 %; Neutrophils # 12.8 K/mcL (1.6-8.9); Platelet Count 271 K/mcL (140-400); Red Blood Count 4.48 M/mcL (3.82-4.97); Red Cell Distribution Width 13.1 % (11.5-14.5); Segmented Neutrophils % 94.1 %; White Blood Count 13.6 K/mcL (4.3-11.1)
[2019-01-02 03:13] LABS: BUN/Creatinine Ratio 30 (6-26); Blood Urea Nitrogen 25 mg/dL (8-23); Calcium 9.2 mg/dL (8.6-10.3); Carbon Dioxide 28 mEq/L (23-29); Chloride 94 mEq/L (98-107); Chol/HDL Ratio 2.4 (0-4.9); Cholesterol 216 mg/dL (< 200); Glucose 171 mg/dL (70-105); HDL Cholesterol 89 mg/dL (40-59); LDL Cholesterol,Calculated 114 mg/dL (0-99); Osmolality,Calculated 282 (280-300); Potassium 3.9 mEq/L (3.5-5.1); Sodium 132 mEq/L (136-145); Triglycerides 63 mg/dL (< 150); eGFR For African Americans > 60 (> 60); eGFR For Non-African Americans > 60 (> 60)
[2019-01-02] MEDS: Ipratropium/Albuterol Neb 3 ML IH SCH ×6 (04:16→22:36)
[2019-01-02] MEDS: MethylPREDNISolone 40 MG/ML VIAL IVP SCH ×4 (05:20→22:31)
[2019-01-02] MEDS: Budesonide/Formoterol 160/4.5 1 PUFF INH IH SCH ×2 (07:29→19:40)
[2019-01-02] MEDS: *HR* HYDROcodone/Acet 5/325 mg TABLET PO PRN ×2 (07:39→16:23)
[2019-01-02] MEDS: Furosemide 20 MG TABLET PO SCH (07:39)
[2019-01-02] MEDS: Aspirin Enteric Coated 81 MG Tablet PO SCH (07:39)
[2019-01-02] MEDS: levoFLOXacin 750 MG/150 ML 750 MG/150 ML BAG IVPB SCH (08:45)
[2019-01-02 15:12] LABS: Adenovirus Not Detected (Not Detect); Bordetella Pertussis Not Detected (Not Detect); Chlamydophila pneumoniae Not Detected (Not Detect); Coronavirus 229E Not Detected (Not Detect); Coronavirus HKU1 Not Detected (Not Detect); Coronavirus NL63 Not Detected (Not Detect); Coronavirus OC43 Not Detected (Not Detect); Human Metapneumovirus Not Detected (Not Detect); Human Rhinovirus/Enterovirus Not Detected (Not Detect); Influenza A Subtype 2009 H1 Not Detected (Not Detect); Influenza B Not Detected (Not Detect); Mycoplasma pneumoniae Not Detected (Not Detect); Parainfluenza Virus 1 Not Detected (Not Detect); Parainfluenza Virus 2 Not Detected (Not Detect); Parainfluenza Virus 3 Not Detected (Not Detect); Parainfluenza Virus 4 Not Detected (Not Detect); Respiratory Syncytial Virus Not Detected (Not Detect)
[2019-01-02] MEDS: carvediloL 6.25 MG TABLET PO SCH (16:23)
[2019-01-03] MEDS: Ipratropium/Albuterol Neb 3 ML IH SCH ×6 (03:02→23:05)
[2019-01-03 04:42] LABS: Hematocrit 39.9 % (35.3-44.9); Hemoglobin 13.5 g/dL (11.5-15.4); Mean Corpuscular HGB Conc 33.8 g/dL (31.6-35.5); Mean Corpuscular Hemoglobin 32.1 pg (28.0-33.3); Mean Corpuscular Volume 94.8 fL (83.0-100.0); Mean Platelet Volume 10.1 fL (9.4-12.4); Platelet Count 260 K/mcL (140-400); Red Blood Count 4.21 M/mcL (3.82-4.97); Red Cell Distribution Width 13.3 % (11.5-14.5); White Blood Count 13.7 K/mcL (4.3-11.1)
[2019-01-03 04:59] LABS: BUN/Creatinine Ratio 31 (6-26); Blood Urea Nitrogen 23 mg/dL (8-23); Carbon Dioxide 28 mEq/L (23-29); Chloride 96 mEq/L (98-107); Glucose 141 mg/dL (70-105); Osmolality,Calculated 280 (280-300); Potassium 4.4 mEq/L (3.5-5.1); Sodium 132 mEq/L (136-145); eGFR For African Americans > 60 (> 60); eGFR For Non-African Americans > 60 (> 60)
[2019-01-03] MEDS: MethylPREDNISolone 40 MG/ML VIAL IVP SCH ×4 (05:37→23:03)
[2019-01-03] MEDS: Budesonide/Formoterol 160/4.5 1 PUFF INH IH SCH ×2 (07:24→20:19)
[2019-01-03] MEDS: carvediloL 6.25 MG TABLET PO SCH (07:46)
[2019-01-03] MEDS: Aspirin Enteric Coated 81 MG Tablet PO SCH (08:49)
[2019-01-03] MEDS: *HR* HYDROcodone/Acet 5/325 mg TABLET PO PRN (08:56)
[2019-01-04] MEDS: Ipratropium/Albuterol Neb 3 ML IH SCH ×6 (03:44→23:01)
[2019-01-04] MEDS: MethylPREDNISolone 40 MG/ML VIAL IVP SCH (05:00)
[2019-01-04 05:08] LABS: Basophils % 0.1 %; Hematocrit 41.9 % (35.3-44.9); Hemoglobin 14.1 g/dL (11.5-15.4); Immature Granulocytes % 0.7 % (0-4); Lymphocytes # 0.4 K/mcL (0.6-4.6); Lymphocytes % 3.3 %; Mean Corpuscular HGB Conc 33.7 g/dL (31.6-35.5); Mean Platelet Volume 10.4 fL (9.4-12.4); Monocytes # 0.4 K/mcL (0.0-1.3); Monocytes % 3.1 %; Neutrophils # 12.5 K/mcL (1.6-8.9); Platelet Count 277 K/mcL (140-400); Red Blood Count 4.41 M/mcL (3.82-4.97); Red Cell Distribution Width 13.1 % (11.5-14.5); Segmented Neutrophils % 92.8 %; White Blood Count 13.4 K/mcL (4.3-11.1)
[2019-01-04 05:29] LABS: BUN/Creatinine Ratio 38 (6-26); Blood Urea Nitrogen 24 mg/dL (8-23); Calcium 8.9 mg/dL (8.6-10.3); Carbon Dioxide 28 mEq/L (23-29); Chloride 94 mEq/L (98-107); Glucose 145 mg/dL (70-105); Osmolality,Calculated 277 (280-300); Potassium 4.6 mEq/L (3.5-5.1); Sodium 130 mEq/L (136-145); eGFR For African Americans > 60 (> 60); eGFR For Non-African Americans > 60 (> 60)
[2019-01-04] MEDS: Budesonide/Formoterol 160/4.5 1 PUFF INH IH SCH ×2 (07:24→20:10)
[2019-01-04] MEDS ORDERED: MethylPREDNISolone 40 MG/ML VIAL IVP SCH (09:00)
[2019-01-04] MEDS: Aspirin Enteric Coated 81 MG Tablet PO SCH (09:07)
[2019-01-04] MEDS: *HR* HYDROcodone/Acet 5/325 mg TABLET PO PRN (09:08)
[2019-01-04] MEDS: levoFLOXacin 750 MG/150 ML 750 MG/150 ML BAG IVPB SCH (09:09)
[2019-01-04] MEDS ORDERED: 0.9 % Sodium Chloride 1,000 ML IVC SCH (13:00)
[2019-01-04] MEDS ORDERED: 0.9 % Sodium Chloride 1,000 ML ONE (13:45)
[2019-01-04] MEDS: *HR* Heparin 5,000 UNIT/ML VIAL SQ SCH (17:49)
[2019-01-05] MEDS: Ipratropium/Albuterol Neb 3 ML IH SCH ×3 (04:15→10:53)
[2019-01-05] MEDS: *HR* Heparin 5,000 UNIT/ML VIAL SQ SCH (06:17)
[2019-01-05 06:18] LABS: Hematocrit 41.3 % (35.3-44.9); Hemoglobin 13.8 g/dL (11.5-15.4); Mean Corpuscular HGB Conc 33.4 g/dL (31.6-35.5); Mean Corpuscular Hemoglobin 31.5 pg (28.0-33.3); Mean Corpuscular Volume 94.3 fL (83.0-100.0); Mean Platelet Volume 10.3 fL (9.4-12.4); Platelet Count 272 K/mcL (140-400); Red Blood Count 4.38 M/mcL (3.82-4.97); Red Cell Distribution Width 13.2 % (11.5-14.5); White Blood Count 11.4 K/mcL (4.3-11.1)
[2019-01-05 06:37] LABS: BUN/Creatinine Ratio 39 (6-26); Blood Urea Nitrogen 24 mg/dL (8-23); Calcium 8.6 mg/dL (8.6-10.3); Carbon Dioxide 30 mEq/L (23-29); Chloride 96 mEq/L (98-107); Glucose 86 mg/dL (70-105); Osmolality,Calculated 281 (280-300); Sodium 134 mEq/L (136-145); eGFR For African Americans > 60 (> 60); eGFR For Non-African Americans > 60 (> 60)
[2019-01-05] MEDS: Budesonide/Formoterol 160/4.5 1 PUFF INH IH SCH (07:26)
[2019-01-05 07:28] VITALS: BP 172/93
[2019-01-05] MEDS ORDERED: predniSONE 20 MG TABLET PO SCH (09:00)
[2019-01-05] MEDS ORDERED: levoFLOXacin 750 MG/150 ML 750 MG/150 ML BAG IVPB SCH (09:00)
[2019-01-05] MEDS ORDERED: [UNRECOGNIZED DRUG - OTHER] IH SCH (09:00)
== END 2019-01-05 11:28 | disposition home health service (06) ==
LOC: 3BNU 22:39 → EMEROOARM 22:39 → SUATTDRO 01-01 06:51 → 3BNU 01-01 07:44
PROVIDERS: ADMIT Family Medicine; ATTEND Internal Medicine

== ENCOUNTER 2019-04-28 18:13 | Observation (INO) ==
[2019-04-28] MEDS ORDERED: 0.9 % Sodium Chloride 1,000 ML IVC ONE ×2 (18:37→18:48)
[2019-04-28] MEDS ORDERED: cefTRIAXone 1,000 MG in Water for inj. (sterile) 10 ML IVP ONE (18:37)
[2019-04-28] MEDS ORDERED: methylPREDNISolone 125 MG/2 ML VIAL IVP ONE (18:48)
[2019-04-28] MEDS ORDERED: Ipratropium/Albuterol Neb 3 ML IH ONE (18:49)
[2019-04-28 18:53] LABS: Basophils % 0.4 %; Eosinophils # 0.1 K/mcL (0.0-0.6); Eosinophils % 0.8 %; Hematocrit 44.6 % (35.3-44.9); Hemoglobin 14.9 g/dL (11.5-15.4); Immature Granulocytes % 0.3 % (0-4); Lymphocytes # 1.2 K/mcL (0.6-4.6); Lymphocytes % 11.4 %; Mean Corpuscular HGB Conc 33.4 g/dL (31.6-35.5); Mean Corpuscular Hemoglobin 31.1 pg (28.0-33.3); Mean Corpuscular Volume 93.1 fL (83.0-100.0); Mean Platelet Volume 9.4 fL (9.4-12.4); Monocytes # 0.8 K/mcL (0.0-1.3); Monocytes % 7.6 %; Neutrophils # 8.5 K/mcL (1.6-8.9); Platelet Count 304 K/mcL (140-400); Red Blood Count 4.79 M/mcL (3.82-4.97); Red Cell Distribution Width 12.7 % (11.5-14.5); Segmented Neutrophils % 79.5 %; White Blood Count 10.6 K/mcL (4.3-11.1)
[2019-04-28 19:12] LABS: BUN/Creatinine Ratio 20 (6-26); Blood Urea Nitrogen 11 mg/dL (8-23); Calcium 9.1 mg/dL (8.6-10.3); Carbon Dioxide 32 mEq/L (23-29); Chloride 90 mEq/L (98-107); Glucose 107 mg/dL (70-105); Osmolality,Calculated 278 (280-300); Potassium 3.4 mEq/L (3.5-5.1); Sodium 134 mEq/L (136-145); eGFR For African Americans > 60 (> 60); eGFR For Non-African Americans > 60 (> 60)
[2019-04-28 19:20] LABS: Troponin I 0.05 ng/mL (< 0.04)
[2019-04-28] MEDS ORDERED: Aspirin 81 MG TAB.CHEW PO ONE (19:37)
[2019-04-28] MEDS ORDERED: Azithromycin 500 MG in 0.9 % Sodium Chloride 250 ML IVPB ONE (19:37)
[2019-04-28 20:07] LABS: VBG HCO3 32 mEq/L (21-27); VBG PCO2 49 mmHg (41-51); VBG PH 7.42 pH Units (7.32-7.42); VBG PO2 120 mmHg (25-50)
[2019-04-28] MEDS ORDERED: Famotidine 20 MG TABLET PO PRN (22:45)
[2019-04-28] MEDS ORDERED: GuaiFENesin Liq 200 MG/10 ML UDC PO PRN (22:46)
[2019-04-28] MEDS ORDERED: Ringers Solution, Lactated 1,000 ML IVC SCH (23:00)
[2019-04-29] MEDS: Ipratropium/Albuterol Neb 3 ML IH SCH ×7 (00:19→23:31)
[2019-04-29] MEDS: Azithromycin 500 MG in D5% in Water 250 ML IVPB SCH ×2 (02:21→07:46)
[2019-04-29 05:42] LABS: BUN/Creatinine Ratio 22 (6-26); Blood Urea Nitrogen 11 mg/dL (8-23); Calcium 8.5 mg/dL (8.6-10.3); Carbon Dioxide 28 mEq/L (23-29); Chloride 96 mEq/L (98-107); Glucose 150 mg/dL (70-105); Magnesium 1.5 mg/dL (1.6-2.6); Osmolality,Calculated 280 (280-300); Phosphorous 3.5 mg/dL (2.7-4.5); Potassium 3.6 mEq/L (3.5-5.1); Sodium 134 mEq/L (136-145); eGFR For African Americans > 60 (> 60); eGFR For Non-African Americans > 60 (> 60)
[2019-04-29] MEDS: *HR* Heparin 5,000 UNIT/ML VIAL SQ SCH ×2 (06:13→16:56)
[2019-04-29] MEDS: MethylPREDNISolone 40 MG/ML VIAL IVP SCH ×2 (06:14→16:56)
[2019-04-29] MEDS: Budesonide/Formoterol 160/4.5 1 PUFF INH IH SCH ×2 (07:16→19:57)
[2019-04-29] MEDS: Fluticasone Propionate Nasal 50 MCG/SPRAY BOTTLE NS SCH (07:45)
[2019-04-29] MEDS: hydrOXYzine pamoate 25 MG CAPSULE PO PRN ×2 (08:51→16:56)
[2019-04-29] MEDS ORDERED: NON-FORMULARY MEDICATION 1 EACH EACH (Umeclidinium Bromide [Incruse Ellipta] 1 PUFF) IH SCH (09:00)
[2019-04-29] MEDS: Acetylcysteine 10% 2 ML INHSOL IH SCH ×3 (11:19→23:32)
[2019-04-30] MEDS: Ipratropium/Albuterol Neb 3 ML IH SCH ×6 (03:36→23:15)
[2019-04-30 04:50] LABS: Basophils % 0.1 %; Hematocrit 41.1 % (35.3-44.9); Hemoglobin 13.7 g/dL (11.5-15.4); Immature Granulocytes % 0.4 % (0-4); Lymphocytes # 0.9 K/mcL (0.6-4.6); Mean Corpuscular HGB Conc 33.3 g/dL (31.6-35.5); Mean Corpuscular Hemoglobin 31.1 pg (28.0-33.3); Mean Corpuscular Volume 93.2 fL (83.0-100.0); Mean Platelet Volume 9.3 fL (9.4-12.4); Monocytes # 0.5 K/mcL (0.0-1.3); Monocytes % 3.6 %; Neutrophils # 13.1 K/mcL (1.6-8.9); Platelet Count 289 K/mcL (140-400); Red Blood Count 4.41 M/mcL (3.82-4.97); Red Cell Distribution Width 12.8 % (11.5-14.5); Segmented Neutrophils % 89.9 %; White Blood Count 14.6 K/mcL (4.3-11.1)
[2019-04-30 05:10] LABS: BUN/Creatinine Ratio 26 (6-26); Blood Urea Nitrogen 14 mg/dL (8-23); Calcium 8.8 mg/dL (8.6-10.3); Carbon Dioxide 30 mEq/L (23-29); Chloride 96 mEq/L (98-107); Glucose 119 mg/dL (70-105); Magnesium 1.8 mg/dL (1.6-2.6); Osmolality,Calculated 278 (280-300); Potassium 3.8 mEq/L (3.5-5.1); Sodium 133 mEq/L (136-145); eGFR For African Americans > 60 (> 60); eGFR For Non-African Americans > 60 (> 60)
[2019-04-30] MEDS: *HR* Heparin 5,000 UNIT/ML VIAL SQ SCH ×2 (05:37→17:12)
[2019-04-30] MEDS: Budesonide/Formoterol 160/4.5 1 PUFF INH IH SCH ×2 (07:48→20:01)
[2019-04-30] MEDS: Acetylcysteine 10% 2 ML INHSOL IH SCH ×3 (07:49→23:16)
[2019-04-30] MEDS: Azithromycin 250 MG TABLET PO SCH (08:05)
[2019-04-30] MEDS: predniSONE 20 MG TABLET PO SCH (08:05)
[2019-04-30] MEDS: Fluticasone Propionate Nasal 50 MCG/SPRAY BOTTLE NS SCH (08:05)
[2019-04-30] MEDS: Metoprolol XL (24 HR) Succ 50 MG TAB.ER.24H PO SCH (09:12)
[2019-05-01] MEDS: Ipratropium/Albuterol Neb 3 ML IH SCH ×3 (04:20→11:25)
[2019-05-01] MEDS: *HR* Heparin 5,000 UNIT/ML VIAL SQ SCH (05:22)
[2019-05-01 06:26] LABS: Basophils % 0.3 %; Eosinophils % 0.1 %; Hematocrit 41.5 % (35.3-44.9); Hemoglobin 13.8 g/dL (11.5-15.4); Immature Granulocytes % 0.5 % (0-4); Lymphocytes # 1.4 K/mcL (0.6-4.6); Lymphocytes % 12.3 %; Mean Corpuscular HGB Conc 33.3 g/dL (31.6-35.5); Mean Corpuscular Hemoglobin 31.3 pg (28.0-33.3); Mean Corpuscular Volume 94.1 fL (83.0-100.0); Mean Platelet Volume 9.8 fL (9.4-12.4); Monocytes # 0.7 K/mcL (0.0-1.3); Monocytes % 6.5 %; Neutrophils # 8.9 K/mcL (1.6-8.9); Platelet Count 260 K/mcL (140-400); Red Blood Count 4.41 M/mcL (3.82-4.97); Red Cell Distribution Width 12.7 % (11.5-14.5); Segmented Neutrophils % 80.3 %
[2019-05-01 06:36] LABS: BUN/Creatinine Ratio 25 (6-26); Blood Urea Nitrogen 13 mg/dL (8-23); Calcium 8.7 mg/dL (8.6-10.3); Carbon Dioxide 31 mEq/L (23-29); Chloride 93 mEq/L (98-107); Glucose 93 mg/dL (70-105); Magnesium 1.7 mg/dL (1.6-2.6); Osmolality,Calculated 274 (280-300); Potassium 3.7 mEq/L (3.5-5.1); Sodium 132 mEq/L (136-145); eGFR For African Americans > 60 (> 60); eGFR For Non-African Americans > 60 (> 60)
[2019-05-01 06:46] VITALS: BP 156/103
[2019-05-01] MEDS: Budesonide/Formoterol 160/4.5 1 PUFF INH IH SCH (07:48)
[2019-05-01] MEDS: Acetylcysteine 10% 2 ML INHSOL IH SCH (07:54)
[2019-05-01] MEDS: Metoprolol XL (24 HR) Succ 50 MG TAB.ER.24H PO SCH (08:40)
[2019-05-01] MEDS: Azithromycin 250 MG TABLET PO SCH (08:41)
[2019-05-01] MEDS: Fluticasone Propionate Nasal 50 MCG/SPRAY BOTTLE NS SCH (08:41)
[2019-05-01] MEDS: predniSONE 20 MG TABLET PO SCH (08:41)
== END 2019-05-01 11:54 | disposition home health service (06) ==
LOC: EMEROOARM 18:13 → 2ANU 18:13 → SUATTDRO 20:38 → 2ANU 20:57
PROVIDERS: ADMIT Internal Medicine; ATTEND Pharmacist

== ENCOUNTER 2019-06-15 17:42 | Inpatient (IN) ==
[2019-06-15] MEDS ORDERED: *HR* Heparin 5,000 UNIT/ML VIAL ONE (17:47)
[2019-06-15] MEDS ORDERED: *HR* Ticagrelor 90 MG TABLET ONE (17:47)
[2019-06-15] MEDS ORDERED: Aspirin 81 MG TAB.CHEW ONE (17:48)
[2019-06-15] MEDS ORDERED: 0.9 % Sodium Chloride 1,000 ML ONE ×3 (17:48→19:08)
[2019-06-15] MEDS ORDERED: Ondansetron 4 MG/2 ML VIAL ONE (17:54)
[2019-06-15 18:06] LABS: Basophils # 0.1 K/mcL (0.0-0.2); Basophils % 0.7 %; Eosinophils % 0.5 %; Hemoglobin 15.6 g/dL (11.5-15.4); Immature Granulocytes % 0.4 % (0-4); Lymphocytes # 1.7 K/mcL (0.6-4.6); Lymphocytes % 22.9 %; Mean Corpuscular HGB Conc 34.7 g/dL (31.6-35.5); Mean Corpuscular Hemoglobin 30.6 pg (28.0-33.3); Mean Corpuscular Volume 88.4 fL (83.0-100.0); Monocytes # 0.5 K/mcL (0.0-1.3); Monocytes % 6.4 %; Neutrophils # 5.1 K/mcL (1.6-8.9); Platelet Count 366 K/mcL (140-400); Red Blood Count 5.09 M/mcL (3.82-4.97); Red Cell Distribution Width 12.9 % (11.5-14.5); Segmented Neutrophils % 69.1 %; White Blood Count 7.4 K/mcL (4.3-11.1)
[2019-06-15] MEDS ORDERED: *HR* Heparin 10,000 UNIT/10 ML VIAL ONE (18:09)
[2019-06-15] MEDS ORDERED: 0.9 % Sodium Chloride 2,000 ML ONE (18:09)
[2019-06-15] MEDS ORDERED: ISOVUE-370 200 ML INFUS..BTL ONE (18:09)
[2019-06-15] MEDS ORDERED: Heparin 1,000 UNITS/500 mL 500 ML ONE (18:09)
[2019-06-15] MEDS ORDERED: Nitroglycerin 1,000 MCG/10 ML VIAL IV ONE (18:09)
[2019-06-15 18:12] LABS: Prothrombin Time 11.6 Seconds (9.4-12.1)
[2019-06-15 18:15] LABS: Activated Partial Thrombo Time 32.3 Seconds (26.0-36.0)
[2019-06-15] MEDS ORDERED: *HR* Etomidate 20 MG/10 ML AMPUL IVP ONE (18:21)
[2019-06-15] MEDS ORDERED: EPINEPHrine 1 MG/ML VIAL ONE (18:22)
[2019-06-15] MEDS ORDERED: *HR* Rocuronium Bromide 50 MG/5 ML VIAL IVP ONE (18:22)
[2019-06-15 18:33] LABS: BUN/Creatinine Ratio 13 (6-26); Blood Urea Nitrogen 12 mg/dL (8-23); Calcium 9.3 mg/dL (8.6-10.3); Carbon Dioxide 30 mEq/L (23-29); Chloride 92 mEq/L (98-107); Glucose 177 mg/dL (70-105); Magnesium 1.6 mg/dL (1.6-2.6); Osmolality,Calculated 282 (280-300); Potassium 3.1 mEq/L (3.5-5.1); Sodium 134 mEq/L (136-145); Troponin I 0.06 ng/mL (< 0.04); eGFR For African Americans > 60 (> 60); eGFR For Non-African Americans > 60 (> 60)
[2019-06-15] MEDS ORDERED: *HR* Midazolam HCl 2 MG/2 ML VIAL ONE (18:41)
[2019-06-15] MEDS ORDERED: *HR* FentaNYL (PF) 100 MCG/2 ML VIAL ONE (18:41)
[2019-06-15] MEDS ORDERED: Tirofiban 12.5 MG/250ML 12.5 MG/250 ML BAG ONE (18:57)
[2019-06-15] MEDS ORDERED: Tirofiban 12.5 MG/250ML 12.5 MG/250 ML BAG IVC SCH (20:00)
[2019-06-15] MEDS ORDERED: Aspirin 325 MG TABLET PO ONE (20:02)
[2019-06-15] MEDS ORDERED: *HR* Ticagrelor 90 MG TABLET PO ONE (20:03)
[2019-06-15] MEDS ORDERED: *HR* Midazolam HCl 2 MG/2 ML VIAL IVP ONE (21:11)
[2019-06-15] MEDS ORDERED: *HR* FentaNYL (PF) 100 MCG/2 ML VIAL IVP ONE (21:12)
[2019-06-15] MEDS ORDERED: Potassium Chloride 40 MEQ, Lidocaine 1% 2 ML in 0.9 % Sodium Chloride 500 ML IVPB ONE (22:10)
[2019-06-15] MEDS: FentaNYL (PF) 1,000 MCG in 0.9 % Sodium Chloride 80 ML IVC SCH (22:41)
[2019-06-15 23:07] LABS: ABG Base Excess 0 mEq/L (-2 to 3); ABG HCO3 25 mEq/L (21-27); ABG Oxygen Saturation 97 % (95-98); ABG PCO2 45 mmHg (35-45); ABG PH 7.37 pH Units (7.32-7.45); ABG PO2 93 mmHg (85-104); ABG TCO2 27 mEq/L (20-26); Blood Gas VT 500 cc
[2019-06-16 04:39] LABS: ABG Base Excess 1 mEq/L (-2 to 3); ABG HCO3 25 mEq/L (21-27); ABG Oxygen Saturation 97 % (95-98); ABG PCO2 40 mmHg (35-45); ABG PH 7.41 pH Units (7.32-7.45); ABG PO2 95 mmHg (85-104); ABG TCO2 26 mEq/L (20-26); Blood Gas Modality ASSIST CONTROL; Blood Gas VT 500 cc
[2019-06-16 05:03] LABS: Basophils % 0.4 %; Hemoglobin 16.1 g/dL (11.5-15.4); Immature Granulocytes % 0.3 % (0-4); Lymphocytes # 0.7 K/mcL (0.6-4.6); Lymphocytes % 7.6 %; Mean Corpuscular HGB Conc 33.5 g/dL (31.6-35.5); Mean Corpuscular Hemoglobin 30.7 pg (28.0-33.3); Mean Corpuscular Volume 91.6 fL (83.0-100.0); Monocytes # 0.7 K/mcL (0.0-1.3); Neutrophils # 8.1 K/mcL (1.6-8.9); Platelet Count 353 K/mcL (140-400); Red Blood Count 5.24 M/mcL (3.82-4.97); Red Cell Distribution Width 13.2 % (11.5-14.5); Segmented Neutrophils % 84.7 %; White Blood Count 9.6 K/mcL (4.3-11.1)
[2019-06-16 05:35] LABS: BUN/Creatinine Ratio 13 (6-26); Blood Urea Nitrogen 12 mg/dL (8-23); Calcium 8.4 mg/dL (8.6-10.3); Carbon Dioxide 23 mEq/L (23-29); Chloride 103 mEq/L (98-107); Glucose 125 mg/dL (70-105); Osmolality,Calculated 291 (280-300); Potassium 4.2 mEq/L (3.5-5.1); Sodium 140 mEq/L (136-145); eGFR For African Americans > 60 (> 60); eGFR For Non-African Americans 57 (> 60)
[2019-06-16] MEDS: FentaNYL (PF) 1,000 MCG in 0.9 % Sodium Chloride 80 ML IVC SCH ×2 (07:15→16:53)
[2019-06-16] MEDS ORDERED: *HR* Ticagrelor 90 MG TABLET PO SCH (09:00)
[2019-06-16] MEDS ORDERED: Artificial Tears SOLN 15 ML BOTTLE BOTH EYES PRN (09:00)
[2019-06-16] MEDS ORDERED: Chlorhexidine Rinse 15 ML MOUTHWASH MM SCH (09:00)
[2019-06-16] MEDS ORDERED: Aspirin 81 MG TAB.CHEW PO SCH (09:00)
[2019-06-16] MEDS ORDERED: Ringers Solution, Lactated 250 ML IVC PRN (09:06)
[2019-06-16] MEDS: Ipratropium/Albuterol Neb 3 ML IH SCH ×2 (09:46→15:04)
[2019-06-16] MEDS: Artificial Tears SOLN 15 ML BOTTLE BOTH EYES SCH ×2 (09:52→15:02)
[2019-06-16] MEDS ORDERED: Budesonide/Formoterol 160/4.5 1 PUFF INH IH SCH (10:00)
[2019-06-16 10:04] LABS: ABG Base Excess 0 mEq/L (-2 to 3); ABG HCO3 26 mEq/L (21-27); ABG Oxygen Saturation 90 % (95-98); ABG PCO2 44 mmHg (35-45); ABG PH 7.38 pH Units (7.32-7.45); ABG PO2 60 mmHg (85-104); ABG TCO2 27 mEq/L (20-26); Blood Gas Modality ASSIST CONTROL; Blood Gas VT 500 cc
[2019-06-16 13:01] LABS: Troponin I > 73.00 ng/mL (< 0.04)
[2019-06-16 13:13] LABS: Thyroid Stimulating Hormone 1.098 mcIU/mL (0.340-5.600)
[2019-06-16 16:01] VITALS: BP 85/67
[2019-06-16] MEDS ORDERED: *HR* Rocuronium Bromide 100 MG/10 ML VIAL IVC ONE (17:15)
[2019-06-16] MEDS ORDERED: *HR* Etomidate 20 MG/10 ML AMPUL IVP ONE (17:15)
== END 2019-06-16 17:16 | disposition short-term general hospital (02) | DRG 246 ==
LOC: EMEROOARM 17:42 → ICNU 18:32
PROVIDERS: ADMIT Internal Medicine Cardiovascular Disease; ATTEND Internal Medicine Cardiovascular Disease

== ENCOUNTER 2020-06-09 22:21 | Inpatient (IN) ==
[2020-06-09] MEDS ORDERED: Tdap (Boostrix) Vaccine 0.5 ML SYRINGE IM ONE (23:40)
[2020-06-09 23:48] LABS: Basophils % 0.6 %; Eosinophils # 0.3 K/mcL (0.0-0.6); Eosinophils % 4.3 %; Hemoglobin 10.5 g/dL (11.5-15.4); Immature Granulocytes % 0.3 % (0-4); Lymphocytes # 0.9 K/mcL (0.6-4.6); Lymphocytes % 12.8 %; Mean Corpuscular HGB Conc 32.8 g/dL (31.6-35.5); Mean Corpuscular Hemoglobin 29.9 pg (28.0-33.3); Mean Corpuscular Volume 91.2 fL (83.0-100.0); Mean Platelet Volume 9.5 fL (9.4-12.4); Monocytes # 0.6 K/mcL (0.0-1.3); Monocytes % 8.4 %; Neutrophils # 5.3 K/mcL (1.6-8.9); Platelet Count 330 K/mcL (140-400); Red Blood Count 3.51 M/mcL (3.82-4.97); Red Cell Distribution Width 13.6 % (11.5-14.5); Segmented Neutrophils % 73.6 %; White Blood Count 7.2 K/mcL (4.3-11.1)
[2020-06-09 23:54] LABS: INR 1.1; Prothrombin Time 12.9 Seconds (9.4-12.1)
[2020-06-10 00:09] LABS: BUN/Creatinine Ratio 24 (6-26); Blood Urea Nitrogen 21 mg/dL (8-23); Calcium 8.5 mg/dL (8.6-10.3); Carbon Dioxide 28 mEq/L (23-29); Chloride 90 mEq/L (98-107); Glucose 101 mg/dL (70-105); Osmolality,Calculated 265 (280-300); Potassium 4.2 mEq/L (3.5-5.1); Sodium 126 mEq/L (136-145); eGFR For African Americans > 60 (> 60); eGFR For Non-African Americans > 60 (> 60)
[2020-06-10 00:10] LABS: Troponin I < 0.03 ng/mL (< 0.04)
[2020-06-10 01:09] LABS: Adenovirus Not Detected (Not Detect); Bordetella Pertussis Not Detected (Not Detect); Chlamydophila pneumoniae Not Detected (Not Detect); Coronavirus 229E Not Detected (Not Detect); Coronavirus HKU1 Not Detected (Not Detect); Coronavirus NL63 Not Detected (Not Detect); Coronavirus OC43 Not Detected (Not Detect); Human Metapneumovirus Not Detected (Not Detect); Human Rhinovirus/Enterovirus Not Detected (Not Detect); Influenza A Subtype 2009 H1 Not Detected (Not Detect); Influenza B Not Detected (Not Detect); Mycoplasma pneumoniae Not Detected (Not Detect); Parainfluenza Virus 1 Not Detected (Not Detect); Parainfluenza Virus 2 Not Detected (Not Detect); Parainfluenza Virus 3 Not Detected (Not Detect); Parainfluenza Virus 4 Not Detected (Not Detect); Respiratory Syncytial Virus Not Detected (Not Detect); SARS-CoV-2 Not Detected (Not Detect)
[2020-06-10] MEDS ORDERED: Isovue-370 500 ML BOTTLE IVP ONE (02:01)
[2020-06-10] MEDS ORDERED: Furosemide 20 MG/2 ML VIAL IVP ONE (04:36)
[2020-06-10] MEDS ORDERED: Naloxone 0.4 MG/ML INJ IVP PRN (05:37)
[2020-06-10] MEDS ORDERED: Ondansetron 4 MG/2 ML VIAL IVP PRN (05:37)
[2020-06-10] MEDS: MethylPREDNISolone 40 MG/ML VIAL IVP SCH ×2 (05:52→17:47)
[2020-06-10] MEDS: Doxycycline 100 MG in 0.9 % Sodium Chloride Mini Bag 100 ML IVPB SCH ×2 (06:41→17:47)
[2020-06-10 10:09] LABS: Sodium, Urine 91.2 mEq/L
[2020-06-10] MEDS ORDERED: Ipratropium/Albuterol Neb 3 ML IH ONE (11:26)
[2020-06-10] MEDS ORDERED: *HR* Propofol 200 MG/20 ML VIAL IVP ONE (14:26)
[2020-06-10] MEDS ORDERED: Lidocaine -MPF 2% 2 ML VIAL ONE (14:27)
[2020-06-10] MEDS ORDERED: *HR* Succinylcholine 200 MG/10 ML VIAL IVP ONE (14:29)
[2020-06-10] MEDS ORDERED: EPINEPHrine 1 MG/ML VIAL ONE (15:28)
[2020-06-10 17:23] LABS: Appearance of Body Fluid Cloudy (Clear); Volume of Body Fluid 23 mL
[2020-06-10 17:23] LABS: Appearance of Body Fluid Cloudy (Clear); Volume of Body Fluid 15 mL
[2020-06-10] MEDS: Ipratropium/Albuterol Neb 3 ML IH SCH (22:25)
[2020-06-10] MEDS: Piperacillin/Tazobactam 3.375 GM in 0.9 % Sodium Chloride Mini Bag 100 ML IVPB SCH (23:25)
[2020-06-11 02:13] LABS: Basophils % 0.1 %; Hematocrit 31.1 % (35.3-44.9); Hemoglobin 10.3 g/dL (11.5-15.4); Immature Granulocytes % 0.7 % (0-4); Lymphocytes # 0.4 K/mcL (0.6-4.6); Lymphocytes % 2.8 %; Mean Corpuscular HGB Conc 33.1 g/dL (31.6-35.5); Mean Corpuscular Hemoglobin 30.4 pg (28.0-33.3); Mean Corpuscular Volume 91.7 fL (83.0-100.0); Mean Platelet Volume 9.6 fL (9.4-12.4); Monocytes # 0.3 K/mcL (0.0-1.3); Platelet Count 332 K/mcL (140-400); Red Blood Count 3.39 M/mcL (3.82-4.97); Red Cell Distribution Width 13.8 % (11.5-14.5); Segmented Neutrophils % 94.4 %
[2020-06-11 02:16] LABS: Neutrophils # 14.4 K/mcL (1.6-8.9); White Blood Count 15.2 K/mcL (4.3-11.1)
[2020-06-11 02:32] LABS: BUN/Creatinine Ratio 28 (6-26); Blood Urea Nitrogen 25 mg/dL (8-23); Calcium 8.7 mg/dL (8.6-10.3); Carbon Dioxide 25 mEq/L (23-29); Chloride 90 mEq/L (98-107); Glucose 185 mg/dL (70-105); Osmolality,Calculated 267 (280-300); Sodium 124 mEq/L (136-145); eGFR For African Americans > 60 (> 60); eGFR For Non-African Americans > 60 (> 60)
[2020-06-11] MEDS: Ipratropium/Albuterol Neb 3 ML IH SCH ×4 (03:53→22:54)
[2020-06-11] MEDS: Doxycycline 100 MG in 0.9 % Sodium Chloride Mini Bag 100 ML IVPB SCH ×2 (05:19→16:52)
[2020-06-11] MEDS: MethylPREDNISolone 40 MG/ML VIAL IVP SCH (05:19)
[2020-06-11] MEDS ORDERED: Perflutren Lipid Microsphere 1.3 ML in 0.9 % Sodium Chloride 8.7 ML IVP PRN (07:23)
[2020-06-11] MEDS ORDERED: Furosemide 20 MG/2 ML VIAL IVP ONE (07:24)
[2020-06-11] MEDS: Piperacillin/Tazobactam 3.375 GM in 0.9 % Sodium Chloride Mini Bag 100 ML IVPB SCH ×3 (07:42→23:29)
[2020-06-11] MEDS: Cyanocobalamin (B-12) 1,000 MCG TABLET PO SCH (07:42)
[2020-06-11] MEDS: aMILoride 5 MG TABLET PO SCH (07:42)
[2020-06-11] MEDS: carvediloL 25 MG TABLET PO SCH ×2 (07:48→16:52)
[2020-06-11] MEDS: Budesonide/Formoterol 160/4.5 1 PUFF INH IH SCH ×2 (11:24→22:54)
[2020-06-11 17:22] LABS: BUN/Creatinine Ratio 24 (6-26); Blood Urea Nitrogen 24 mg/dL (8-23); Calcium 8.9 mg/dL (8.6-10.3); Carbon Dioxide 26 mEq/L (23-29); Chloride 90 mEq/L (98-107); Glucose 126 mg/dL (70-105); Osmolality,Calculated 268 (280-300); Potassium 4.2 mEq/L (3.5-5.1); Sodium 126 mEq/L (136-145); eGFR For African Americans > 60 (> 60); eGFR For Non-African Americans 53 (> 60)
[2020-06-12] MEDS: Ipratropium/Albuterol Neb 3 ML IH SCH ×4 (03:47→22:08)
[2020-06-12] MEDS: Doxycycline 100 MG in 0.9 % Sodium Chloride Mini Bag 100 ML IVPB SCH (05:36)
[2020-06-12 06:58] LABS: Basophils # 0.1 K/mcL (0.0-0.2); Basophils % 0.5 %; Eosinophils % 0.3 %; Hematocrit 33.7 % (35.3-44.9); Hemoglobin 10.8 g/dL (11.5-15.4); Immature Granulocytes % 0.4 % (0-4); Lymphocytes # 1.4 K/mcL (0.6-4.6); Lymphocytes % 12.2 %; Mean Corpuscular Hemoglobin 29.4 pg (28.0-33.3); Mean Corpuscular Volume 91.8 fL (83.0-100.0); Mean Platelet Volume 9.6 fL (9.4-12.4); Monocytes # 0.8 K/mcL (0.0-1.3); Monocytes % 6.9 %; Neutrophils # 9.3 K/mcL (1.6-8.9); Platelet Count 378 K/mcL (140-400); Red Blood Count 3.67 M/mcL (3.82-4.97); Segmented Neutrophils % 79.7 %; White Blood Count 11.6 K/mcL (4.3-11.1)
[2020-06-12 07:19] LABS: BUN/Creatinine Ratio 26 (6-26); Blood Urea Nitrogen 24 mg/dL (8-23); Calcium 8.8 mg/dL (8.6-10.3); Carbon Dioxide 29 mEq/L (23-29); Chloride 91 mEq/L (98-107); Glucose 90 mg/dL (70-105); Osmolality,Calculated 270 (280-300); Sodium 128 mEq/L (136-145); eGFR For African Americans > 60 (> 60); eGFR For Non-African Americans 58 (> 60)
[2020-06-12] MEDS: Piperacillin/Tazobactam 3.375 GM in 0.9 % Sodium Chloride Mini Bag 100 ML IVPB SCH (08:55)
[2020-06-12] MEDS: carvediloL 25 MG TABLET PO SCH ×2 (08:57→16:43)
[2020-06-12] MEDS: predniSONE 20 MG TABLET PO SCH (08:58)
[2020-06-12] MEDS: aMILoride 5 MG TABLET PO SCH (09:00)
[2020-06-12] MEDS: Cyanocobalamin (B-12) 1,000 MCG TABLET PO SCH (09:00)
[2020-06-12] MEDS: Budesonide/Formoterol 160/4.5 1 PUFF INH IH SCH ×2 (11:13→22:08)
[2020-06-12] MEDS ORDERED: Furosemide 20 MG/2 ML VIAL IVP ONE (14:12)
[2020-06-12] MEDS: *HR* Heparin 5,000 UNIT/ML VIAL SQ SCH (16:45)
[2020-06-12] MEDS ORDERED: levoFLOXacin 750 MG TABLET PO SCH (17:00)
[2020-06-13] MEDS: Ipratropium/Albuterol Neb 3 ML IH SCH ×4 (03:48→20:21)
[2020-06-13] MEDS: *HR* Heparin 5,000 UNIT/ML VIAL SQ SCH ×2 (05:35→17:32)
[2020-06-13 07:53] LABS: Basophils % 0.3 %; Eosinophils # 0.1 K/mcL (0.0-0.6); Eosinophils % 0.4 %; Hemoglobin 11.9 g/dL (11.5-15.4); Immature Granulocytes % 0.3 % (0-4); Lymphocytes # 1.5 K/mcL (0.6-4.6); Lymphocytes % 12.5 %; Mean Corpuscular HGB Conc 33.1 g/dL (31.6-35.5); Mean Corpuscular Hemoglobin 30.4 pg (28.0-33.3); Mean Corpuscular Volume 92.1 fL (83.0-100.0); Monocytes # 0.9 K/mcL (0.0-1.3); Monocytes % 7.8 %; Neutrophils # 9.2 K/mcL (1.6-8.9); Platelet Count 348 K/mcL (140-400); Red Blood Count 3.91 M/mcL (3.82-4.97); Red Cell Distribution Width 13.9 % (11.5-14.5); Segmented Neutrophils % 78.7 %; White Blood Count 11.7 K/mcL (4.3-11.1)
[2020-06-13 08:03] LABS: BUN/Creatinine Ratio 28 (6-26); Blood Urea Nitrogen 29 mg/dL (8-23); Calcium 9.1 mg/dL (8.6-10.3); Carbon Dioxide 29 mEq/L (23-29); Chloride 89 mEq/L (98-107); Glucose 92 mg/dL (70-105); Osmolality,Calculated 265 (280-300); Potassium 4.2 mEq/L (3.5-5.1); Sodium 125 mEq/L (136-145); eGFR For African Americans > 60 (> 60); eGFR For Non-African Americans 53 (> 60)
[2020-06-13] MEDS: aMILoride 5 MG TABLET PO SCH (08:18)
[2020-06-13] MEDS: predniSONE 20 MG TABLET PO SCH (08:18)
[2020-06-13] MEDS: Cyanocobalamin (B-12) 1,000 MCG TABLET PO SCH (08:21)
[2020-06-13] MEDS: carvediloL 25 MG TABLET PO SCH ×2 (08:21→17:31)
[2020-06-13] MEDS ORDERED: Furosemide 20 MG TABLET PO SCH (09:00)
[2020-06-13] MEDS: Budesonide/Formoterol 160/4.5 1 PUFF INH IH SCH ×2 (10:02→20:22)
[2020-06-14 03:25] LABS: Basophils % 0.1 %; Hematocrit 36.8 % (35.3-44.9); Hemoglobin 12.2 g/dL (11.5-15.4); Immature Granulocytes % 0.4 % (0-4); Lymphocytes # 1.3 K/mcL (0.6-4.6); Lymphocytes % 12.7 %; Mean Corpuscular HGB Conc 33.2 g/dL (31.6-35.5); Mean Corpuscular Hemoglobin 30.3 pg (28.0-33.3); Mean Corpuscular Volume 91.3 fL (83.0-100.0); Mean Platelet Volume 9.8 fL (9.4-12.4); Monocytes # 0.7 K/mcL (0.0-1.3); Monocytes % 6.8 %; Neutrophils # 7.9 K/mcL (1.6-8.9); Platelet Count 387 K/mcL (140-400); Red Blood Count 4.03 M/mcL (3.82-4.97); White Blood Count 9.9 K/mcL (4.3-11.1)
[2020-06-14 03:39] LABS: BUN/Creatinine Ratio 38 (6-26); Blood Urea Nitrogen 33 mg/dL (8-23); Calcium 9.3 mg/dL (8.6-10.3); Carbon Dioxide 27 mEq/L (23-29); Chloride 93 mEq/L (98-107); Glucose 105 mg/dL (70-105); Osmolality,Calculated 272 (280-300); Potassium 4.4 mEq/L (3.5-5.1); Sodium 127 mEq/L (136-145); eGFR For African Americans > 60 (> 60); eGFR For Non-African Americans > 60 (> 60)
[2020-06-14] MEDS: Ipratropium/Albuterol Neb 3 ML IH SCH ×2 (04:36→10:02)
[2020-06-14] MEDS: *HR* Heparin 5,000 UNIT/ML VIAL SQ SCH (05:26)
[2020-06-14 07:55] VITALS: BP 144/88
[2020-06-14] MEDS: predniSONE 20 MG TABLET PO SCH (08:26)
[2020-06-14] MEDS: aMILoride 5 MG TABLET PO SCH (08:26)
[2020-06-14] MEDS: carvediloL 25 MG TABLET PO SCH (08:27)
[2020-06-14] MEDS: Cyanocobalamin (B-12) 1,000 MCG TABLET PO SCH (08:28)
[2020-06-14] MEDS: Budesonide/Formoterol 160/4.5 1 PUFF INH IH SCH (10:02)
== END 2020-06-14 15:20 | disposition home health service (06) | DRG 177 ==
LOC: EMEROOARM 22:21 → 2ANU 22:21 → SUATTDRO 06-11 13:15
PROVIDERS: ADMIT Student in an Organized Health Care Education/Training Program; ATTEND General Practice

== ENCOUNTER 2020-09-25 18:44 | Observation (INO) ==
[2020-09-25 20:21] LABS: Basophils % 0.4 %; Eosinophils # 0.1 K/mcL (0.0-0.6); Eosinophils % 1.3 %; Hematocrit 38.1 % (35.3-44.9); Hemoglobin 12.4 g/dL (11.5-15.4); Immature Granulocytes % 0.4 % (0-4); Lymphocytes # 1.1 K/mcL (0.6-4.6); Mean Corpuscular HGB Conc 32.5 g/dL (31.6-35.5); Mean Corpuscular Hemoglobin 30.2 pg (28.0-33.3); Mean Corpuscular Volume 92.7 fL (83.0-100.0); Mean Platelet Volume 9.7 fL (9.4-12.4); Monocytes # 0.7 K/mcL (0.0-1.3); Monocytes % 8.5 %; Neutrophils # 5.9 K/mcL (1.6-8.9); Platelet Count 306 K/mcL (140-400); Red Blood Count 4.11 M/mcL (3.82-4.97); Red Cell Distribution Width 12.5 % (11.5-14.5); Segmented Neutrophils % 75.4 %; White Blood Count 7.9 K/mcL (4.3-11.1)
[2020-09-25 20:43] LABS: BUN/Creatinine Ratio 20 (6-26); Blood Urea Nitrogen 15 mg/dL (8-23); Calcium 9.2 mg/dL (8.6-10.3); Carbon Dioxide 37 mEq/L (23-29); Chloride 90 mEq/L (98-107); Glucose 86 mg/dL (70-105); Magnesium 1.9 mg/dL (1.6-2.6); Osmolality,Calculated 278 (280-300); Potassium 3.6 mEq/L (3.5-5.1); Sodium 134 mEq/L (136-145); Troponin I 0.03 ng/mL (< 0.04); eGFR For African Americans > 60 (> 60); eGFR For Non-African Americans > 60 (> 60)
[2020-09-25 21:54] LABS: Adenovirus Not Detected (Not Detect); Bordetella Pertussis Not Detected (Not Detect); Chlamydophila pneumoniae Not Detected (Not Detect); Coronavirus 229E Not Detected (Not Detect); Coronavirus HKU1 Not Detected (Not Detect); Coronavirus NL63 Not Detected (Not Detect); Coronavirus OC43 Not Detected (Not Detect); Human Metapneumovirus Not Detected (Not Detect); Human Rhinovirus/Enterovirus Not Detected (Not Detect); Influenza A Subtype 2009 H1 Not Detected (Not Detect); Influenza B Not Detected (Not Detect); Mycoplasma pneumoniae Not Detected (Not Detect); Parainfluenza Virus 1 Not Detected (Not Detect); Parainfluenza Virus 2 Not Detected (Not Detect); Parainfluenza Virus 3 Not Detected (Not Detect); Parainfluenza Virus 4 Not Detected (Not Detect); Respiratory Syncytial Virus Not Detected (Not Detect); SARS-CoV-2 Not Detected (Not Detect)
[2020-09-25] MEDS ORDERED: Isovue-370 500 ML BOTTLE IVP ONE (22:03)
[2020-09-26] MEDS ORDERED: cefTRIAXone 1,000 MG in 0.9 % Sodium Chloride Mini Bag 100 ML IVPB ONE (00:02)
[2020-09-26] MEDS ORDERED: Albuterol 2.5 MG/3 ML NEBULIZER IH PRN (02:07)
[2020-09-26] MEDS ORDERED: Naloxone 0.4 MG/ML INJ IVP PRN (02:12)
[2020-09-26] MEDS ORDERED: Ondansetron 4 MG/2 ML VIAL IVP PRN (02:12)
[2020-09-26] MEDS ORDERED: Acetaminophen 325 MG TABLET PO PRN (02:12)
[2020-09-26] MEDS ORDERED: methylPREDNISolone 125 MG/2 ML VIAL IVP ONE (02:30)
[2020-09-26 03:15] LABS: Basophils % 0.3 %; Eosinophils # 0.1 K/mcL (0.0-0.6); Eosinophils % 1.4 %; Hemoglobin 11.6 g/dL (11.5-15.4); Immature Granulocytes % 0.3 % (0-4); Lymphocytes % 15.5 %; Mean Corpuscular HGB Conc 32.2 g/dL (31.6-35.5); Mean Corpuscular Hemoglobin 30.1 pg (28.0-33.3); Mean Corpuscular Volume 93.5 fL (83.0-100.0); Mean Platelet Volume 9.5 fL (9.4-12.4); Monocytes # 0.5 K/mcL (0.0-1.3); Monocytes % 7.7 %; Platelet Count 277 K/mcL (140-400); Red Blood Count 3.85 M/mcL (3.82-4.97); Red Cell Distribution Width 12.7 % (11.5-14.5); Segmented Neutrophils % 74.8 %; White Blood Count 6.6 K/mcL (4.3-11.1)
[2020-09-26 03:30] LABS: BUN/Creatinine Ratio 20 (6-26); Blood Urea Nitrogen 14 mg/dL (8-23); Calcium 9.1 mg/dL (8.6-10.3); Carbon Dioxide 38 mEq/L (23-29); Chloride 91 mEq/L (98-107); Glucose 98 mg/dL (70-105); Osmolality,Calculated 278 (280-300); Potassium 3.9 mEq/L (3.5-5.1); Sodium 134 mEq/L (136-145); eGFR For African Americans > 60 (> 60); eGFR For Non-African Americans > 60 (> 60)
[2020-09-26] MEDS: Albuterol 2.5 MG/3 ML NEBULIZER IH SCH ×6 (04:31→23:43)
[2020-09-26] MEDS: *HR* Heparin 5,000 UNIT/ML VIAL SQ SCH ×2 (06:43→17:25)
[2020-09-26] MEDS: predniSONE 20 MG TABLET PO SCH (08:49)
[2020-09-26] MEDS: Azithromycin 250 MG TABLET PO SCH (08:50)
[2020-09-26] MEDS: Budesonide/Formoterol 160/4.5 1 PUFF INH IH SCH (19:45)
[2020-09-26] MEDS: Melatonin 3 MG TABLET PO PRN (21:14)
[2020-09-27] MEDS: Albuterol 2.5 MG/3 ML NEBULIZER IH SCH ×5 (03:12→20:07)
[2020-09-27 05:40] LABS: Basophils % 0.2 %; Eosinophils % 0.1 %; Hematocrit 35.6 % (35.3-44.9); Hemoglobin 11.7 g/dL (11.5-15.4); Immature Granulocytes % 0.4 % (0-4); Lymphocytes # 1.1 K/mcL (0.6-4.6); Lymphocytes % 10.3 %; Mean Corpuscular HGB Conc 32.9 g/dL (31.6-35.5); Mean Corpuscular Hemoglobin 30.4 pg (28.0-33.3); Mean Corpuscular Volume 92.5 fL (83.0-100.0); Mean Platelet Volume 9.8 fL (9.4-12.4); Monocytes # 0.8 K/mcL (0.0-1.3); Monocytes % 7.4 %; Platelet Count 284 K/mcL (140-400); Red Blood Count 3.85 M/mcL (3.82-4.97); Red Cell Distribution Width 12.7 % (11.5-14.5); Segmented Neutrophils % 81.6 %
[2020-09-27 05:41] LABS: Neutrophils # 9.1 K/mcL (1.6-8.9); White Blood Count 11.1 K/mcL (4.3-11.1)
[2020-09-27] MEDS: *HR* Heparin 5,000 UNIT/ML VIAL SQ SCH ×2 (05:44→16:56)
[2020-09-27 06:02] LABS: BUN/Creatinine Ratio 32 (6-26); Blood Urea Nitrogen 21 mg/dL (8-23); Calcium 9.3 mg/dL (8.6-10.3); Carbon Dioxide 33 mEq/L (23-29); Chloride 93 mEq/L (98-107); Glucose 111 mg/dL (70-105); Osmolality,Calculated 280 (280-300); Potassium 3.8 mEq/L (3.5-5.1); Sodium 133 mEq/L (136-145); eGFR For African Americans > 60 (> 60); eGFR For Non-African Americans > 60 (> 60)
[2020-09-27] MEDS: Budesonide/Formoterol 160/4.5 1 PUFF INH IH SCH ×2 (07:46→20:08)
[2020-09-27] MEDS: cefTRIAXone 1,000 MG in Water for inj. (sterile) 10 ML IVP SCH (08:21)
[2020-09-27] MEDS: predniSONE 20 MG TABLET PO SCH (08:21)
[2020-09-27] MEDS: Azithromycin 250 MG TABLET PO SCH (08:21)
[2020-09-27] MEDS ORDERED: hydrOXYzine pamoate 25 MG CAPSULE PO PRN (11:04)
[2020-09-27] MEDS: carvediloL 6.25 MG TABLET PO SCH ×2 (11:33→16:56)
[2020-09-27] MEDS: Fluticasone Propionate Nasal 50 MCG/SPRAY BOTTLE NS SCH (11:33)
[2020-09-27] MEDS: Melatonin 3 MG TABLET PO PRN (20:49)
[2020-09-28] MEDS: Albuterol 2.5 MG/3 ML NEBULIZER IH SCH ×5 (00:31→15:47)
[2020-09-28] MEDS: *HR* Heparin 5,000 UNIT/ML VIAL SQ SCH (05:06)
[2020-09-28] MEDS: Budesonide/Formoterol 160/4.5 1 PUFF INH IH SCH (07:18)
[2020-09-28 08:23] LABS: BUN/Creatinine Ratio 35 (6-26); Blood Urea Nitrogen 24 mg/dL (8-23); Carbon Dioxide 33 mEq/L (23-29); Chloride 93 mEq/L (98-107); Glucose 85 mg/dL (70-105); Osmolality,Calculated 281 (280-300); Potassium 3.9 mEq/L (3.5-5.1); Sodium 134 mEq/L (136-145); eGFR For African Americans > 60 (> 60); eGFR For Non-African Americans > 60 (> 60)
[2020-09-28] MEDS: cefTRIAXone 1,000 MG in Water for inj. (sterile) 10 ML IVP SCH (09:34)
[2020-09-28] MEDS: carvediloL 6.25 MG TABLET PO SCH (09:35)
[2020-09-28] MEDS: predniSONE 20 MG TABLET PO SCH (09:35)
[2020-09-28] MEDS: Azithromycin 250 MG TABLET PO SCH (09:36)
[2020-09-28] MEDS: Fluticasone Propionate Nasal 50 MCG/SPRAY BOTTLE NS SCH (09:36)
[2020-09-28 10:49] VITALS: BP 133/72
== END 2020-09-28 16:18 | disposition home or self-care (01) ==
LOC: 3ANU 18:44 → EMEROOARM 18:44 → SUATTDRO 09-26 01:27 → 3ANU 09-26 02:23
PROVIDERS: ADMIT Family Medicine; ATTEND Student in an Organized Health Care Education/Training Program

== ENCOUNTER 2021-02-24 10:29 | Inpatient (IN) ==
[2021-02-24] MEDS ORDERED: Ipratropium/Albuterol Neb 3 ML IH ONE (10:48)
[2021-02-24 11:34] LABS: Basophils % 0.3 %; Eosinophils # 0.1 K/mcL (0.0-0.6); Eosinophils % 1.2 %; Hematocrit 39.5 % (35.3-44.9); Hemoglobin 13.1 g/dL (11.5-15.4); Immature Granulocytes % 0.5 % (0-4); Lymphocytes % 10.8 %; Mean Corpuscular HGB Conc 33.2 g/dL (31.6-35.5); Mean Corpuscular Hemoglobin 29.2 pg (28.0-33.3); Mean Corpuscular Volume 88.2 fL (83.0-100.0); Mean Platelet Volume 9.5 fL (9.4-12.4); Monocytes # 0.7 K/mcL (0.0-1.3); Neutrophils # 7.7 K/mcL (1.6-8.9); Platelet Count 311 K/mcL (140-400); Red Blood Count 4.48 M/mcL (3.82-4.97); Red Cell Distribution Width 13.2 % (11.5-14.5); Segmented Neutrophils % 80.2 %; White Blood Count 9.6 K/mcL (4.3-11.1)
[2021-02-24 11:51] LABS: Potassium 3.5 mEq/L (3.5-5.1)
[2021-02-24 11:57] LABS: Troponin I 0.38 ng/mL (< 0.04)
[2021-02-24] MEDS ORDERED: *HR* Heparin 5,000 UNIT/ML VIAL IVP ONE (12:16)
[2021-02-24] MEDS ORDERED: *HR* Heparin 5,000 UNIT/ML VIAL IVP PRN ×2 (12:16)
[2021-02-24] MEDS ORDERED: methylPREDNISolone 125 MG/2 ML VIAL IVP ONE (12:19)
[2021-02-24] MEDS ORDERED: Ondansetron 4 MG/2 ML VIAL IVP PRN (12:53)
[2021-02-24] MEDS ORDERED: Naloxone 0.4 MG/ML INJ IVP PRN (12:53)
[2021-02-24] MEDS ORDERED: Ipratropium/Albuterol Neb 3 ML IH PRN (12:56)
[2021-02-24] MEDS ORDERED: Furosemide 40 MG/4 ML VIAL IVP ONE (12:57)
[2021-02-24] MEDS ORDERED: Perflutren Lipid Microsphere 1.3 ML in 0.9 % Sodium Chloride 8.7 ML IVP PRN (12:58)
[2021-02-24] MEDS: Heparin 25,000UNIT/250ML 1/2NS 25,000 UNIT/250 ML IV.SOLN IVC SCH (13:02)
[2021-02-24 13:06] LABS: Adenovirus Not Detected (Not Detect); Bordetella Pertussis Not Detected (Not Detect); Chlamydophila pneumoniae Not Detected (Not Detect); Coronavirus 229E Not Detected (Not Detect); Coronavirus HKU1 Not Detected (Not Detect); Coronavirus NL63 Not Detected (Not Detect); Coronavirus OC43 Not Detected (Not Detect); Human Metapneumovirus Not Detected (Not Detect); Human Rhinovirus/Enterovirus Not Detected (Not Detect); Influenza A Subtype 2009 H1 Not Detected (Not Detect); Influenza B Not Detected (Not Detect); Mycoplasma pneumoniae Not Detected (Not Detect); Parainfluenza Virus 1 Not Detected (Not Detect); Parainfluenza Virus 2 Not Detected (Not Detect); Parainfluenza Virus 3 Not Detected (Not Detect); Parainfluenza Virus 4 Not Detected (Not Detect); Respiratory Syncytial Virus Not Detected (Not Detect); SARS-CoV-2 Not Detected (Not Detect)
[2021-02-24 13:17] LABS: Hematocrit 38.8 % (35.3-44.9); Hemoglobin 12.9 g/dL (11.5-15.4); Mean Corpuscular HGB Conc 33.2 g/dL (31.6-35.5); Mean Corpuscular Hemoglobin 29.7 pg (28.0-33.3); Mean Corpuscular Volume 89.2 fL (83.0-100.0); Mean Platelet Volume 9.4 fL (9.4-12.4); Platelet Count 305 K/mcL (140-400); Red Blood Count 4.35 M/mcL (3.82-4.97); Red Cell Distribution Width 13.2 % (11.5-14.5); White Blood Count 9.3 K/mcL (4.3-11.1)
[2021-02-24 13:24] LABS: Heparin anti-factor XA UFH < 0.04 IU/mL (0.30-0.70)
[2021-02-24 13:25] LABS: Prothrombin Time 11.6 Seconds (9.4-12.1)
[2021-02-24] MEDS: carvediloL 6.25 MG TABLET PO SCH (17:21)
[2021-02-24] MEDS: MethylPREDNISolone 40 MG/ML VIAL IVP SCH (17:22)
[2021-02-24] MEDS: Ipratropium/Albuterol Neb 3 ML IH SCH ×2 (17:25→21:40)
[2021-02-24] MEDS ORDERED: Doxycycline 100 MG in 0.9 % Sodium Chloride Mini Bag 100 ML IVPB SCH (18:00)
[2021-02-24] MEDS: Doxycycline 100 MG in 0.9 % Sodium Chloride Mini Bag 100 ML IVPB SCH (20:07)
[2021-02-24] MEDS: Melatonin 3 MG TABLET PO PRN (20:25)
[2021-02-25] MEDS: Acetaminophen 325 MG TABLET PO PRN ×2 (00:55→15:36)
[2021-02-25 02:17] LABS: Basophils % 0.1 %; Hematocrit 35.9 % (35.3-44.9); Hemoglobin 12.3 g/dL (11.5-15.4); Immature Granulocytes % 0.7 % (0-4); Lymphocytes # 0.6 K/mcL (0.6-4.6); Lymphocytes % 6.7 %; Mean Corpuscular HGB Conc 34.3 g/dL (31.6-35.5); Mean Corpuscular Hemoglobin 30.3 pg (28.0-33.3); Mean Corpuscular Volume 88.4 fL (83.0-100.0); Mean Platelet Volume 9.7 fL (9.4-12.4); Monocytes # 0.1 K/mcL (0.0-1.3); Monocytes % 1.1 %; Neutrophils # 7.5 K/mcL (1.6-8.9); Platelet Count 289 K/mcL (140-400); Red Blood Count 4.06 M/mcL (3.82-4.97); Red Cell Distribution Width 13.1 % (11.5-14.5); Segmented Neutrophils % 91.4 %; White Blood Count 8.2 K/mcL (4.3-11.1)
[2021-02-25 02:37] LABS: Calcium 8.6 mg/dL (8.6-10.3); Chol/HDL Ratio 2.9 (0-4.9); Phosphorous 3.4 mg/dL (2.7-4.5); Potassium 3.7 mEq/L (3.5-5.1)
[2021-02-25 02:57] LABS: Estimated Average Glucose 143 mg/dl; Hemoglobin A1C 6.6 %
[2021-02-25] MEDS: Ipratropium/Albuterol Neb 3 ML IH SCH ×4 (03:28→22:15)
[2021-02-25] MEDS: MethylPREDNISolone 40 MG/ML VIAL IVP SCH ×2 (05:29→16:12)
[2021-02-25] MEDS: Doxycycline 100 MG in 0.9 % Sodium Chloride Mini Bag 100 ML IVPB SCH ×2 (07:52→19:22)
[2021-02-25] MEDS: Aspirin 81 MG TAB.CHEW PO SCH (07:52)
[2021-02-25] MEDS: carvediloL 6.25 MG TABLET PO SCH ×2 (07:52→16:11)
[2021-02-25] MEDS: Furosemide 20 MG/2 ML VIAL IVP SCH (10:26)
[2021-02-25] MEDS: Heparin 25,000UNIT/250ML 1/2NS 25,000 UNIT/250 ML IV.SOLN IVC SCH (13:30)
[2021-02-26] MEDS: Heparin 25,000UNIT/250ML 1/2NS 25,000 UNIT/250 ML IV.SOLN IVC SCH (02:16)
[2021-02-26] MEDS: Ipratropium/Albuterol Neb 3 ML IH SCH ×4 (03:35→22:07)
[2021-02-26] MEDS: MethylPREDNISolone 40 MG/ML VIAL IVP SCH (05:14)
[2021-02-26 06:40] LABS: Basophils % 0.1 %; Hematocrit 37.3 % (35.3-44.9); Hemoglobin 12.5 g/dL (11.5-15.4); Immature Granulocytes % 0.7 % (0-4); Lymphocytes # 0.9 K/mcL (0.6-4.6); Lymphocytes % 6.4 %; Mean Corpuscular HGB Conc 33.5 g/dL (31.6-35.5); Mean Corpuscular Hemoglobin 29.9 pg (28.0-33.3); Mean Corpuscular Volume 89.2 fL (83.0-100.0); Mean Platelet Volume 10.1 fL (9.4-12.4); Monocytes # 0.6 K/mcL (0.0-1.3); Monocytes % 4.4 %; Neutrophils # 12.8 K/mcL (1.6-8.9); Platelet Count 298 K/mcL (140-400); Red Blood Count 4.18 M/mcL (3.82-4.97); Red Cell Distribution Width 13.5 % (11.5-14.5); Segmented Neutrophils % 88.4 %; White Blood Count 14.5 K/mcL (4.3-11.1)
[2021-02-26 06:57] LABS: BUN/Creatinine Ratio 35 (6-26); Blood Urea Nitrogen 30 mg/dL (8-23); Carbon Dioxide 30 mEq/L (23-29); Chloride 94 mEq/L (98-107); Glucose 123 mg/dL (70-105); Osmolality,Calculated 280 (280-300); Potassium 4.1 mEq/L (3.5-5.1); Sodium 131 mEq/L (136-145); eGFR For African Americans > 60 (> 60); eGFR For Non-African Americans > 60 (> 60)
[2021-02-26] MEDS ORDERED: Fluticasone Propionate Nasal 50 MCG/SPRAY BOTTLE NS PRN (08:28)
[2021-02-26] MEDS: carvediloL 6.25 MG TABLET PO SCH ×2 (08:30→16:56)
[2021-02-26] MEDS: Furosemide 20 MG/2 ML VIAL IVP SCH (08:30)
[2021-02-26] MEDS: Aspirin 81 MG TAB.CHEW PO SCH (08:30)
[2021-02-26] MEDS: Doxycycline 100 MG in 0.9 % Sodium Chloride Mini Bag 100 ML IVPB SCH (08:31)
[2021-02-26] MEDS: Cyanocobalamin (B-12) 1,000 MCG TABLET PO SCH (08:39)
[2021-02-26] MEDS ORDERED: NON-FORMULARY MEDICATION 1 EACH EACH (Umeclidinium Bromide [Incruse Ellipta] 62.5 MCG Blst IH SCH (09:00)
[2021-02-26] MEDS: Doxycycline 100 MG CAPSULE PO SCH (20:05)
[2021-02-26] MEDS: Melatonin 3 MG TABLET PO PRN (20:05)
[2021-02-27] MEDS: Ipratropium/Albuterol Neb 3 ML IH SCH ×4 (04:45→21:20)
[2021-02-27 06:35] LABS: Basophils % 0.1 %; Hematocrit 38.4 % (35.3-44.9); Hemoglobin 12.7 g/dL (11.5-15.4); Immature Granulocytes % 0.6 % (0-4); Lymphocytes # 1.5 K/mcL (0.6-4.6); Lymphocytes % 13.1 %; Mean Corpuscular HGB Conc 33.1 g/dL (31.6-35.5); Mean Corpuscular Hemoglobin 29.6 pg (28.0-33.3); Mean Corpuscular Volume 89.5 fL (83.0-100.0); Monocytes # 0.8 K/mcL (0.0-1.3); Monocytes % 6.9 %; Neutrophils # 9.3 K/mcL (1.6-8.9); Platelet Count 292 K/mcL (140-400); Red Blood Count 4.29 M/mcL (3.82-4.97); Red Cell Distribution Width 13.9 % (11.5-14.5); Segmented Neutrophils % 79.3 %; White Blood Count 11.8 K/mcL (4.3-11.1)
[2021-02-27 06:47] LABS: BUN/Creatinine Ratio 34 (6-26); Blood Urea Nitrogen 32 mg/dL (8-23); Calcium 8.9 mg/dL (8.6-10.3); Carbon Dioxide 27 mEq/L (23-29); Chloride 96 mEq/L (98-107); Glucose 98 mg/dL (70-105); Osmolality,Calculated 281 (280-300); Sodium 132 mEq/L (136-145); eGFR For African Americans > 60 (> 60); eGFR For Non-African Americans 59 (> 60)
[2021-02-27] MEDS ORDERED: Furosemide 20 MG/2 ML VIAL IVP ONE (08:50)
[2021-02-27] MEDS: Furosemide 20 MG/2 ML VIAL IVP SCH (09:01)
[2021-02-27] MEDS: carvediloL 6.25 MG TABLET PO SCH ×2 (09:01→17:31)
[2021-02-27] MEDS: predniSONE 20 MG TABLET PO SCH (09:01)
[2021-02-27] MEDS: Aspirin 81 MG TAB.CHEW PO SCH (09:01)
[2021-02-27] MEDS: Doxycycline 100 MG CAPSULE PO SCH ×2 (09:01→20:01)
[2021-02-27] MEDS: Cyanocobalamin (B-12) 1,000 MCG TABLET PO SCH (09:01)
[2021-02-27] MEDS: Acetaminophen 325 MG TABLET PO PRN ×2 (10:56→17:30)
[2021-02-27] MEDS: Heparin 25,000UNIT/250ML 1/2NS 25,000 UNIT/250 ML IV.SOLN IVC SCH (10:56)
[2021-02-27] MEDS: *HR* Heparin 5,000 UNIT/ML VIAL SQ SCH (17:30)
[2021-02-28] MEDS: Ipratropium/Albuterol Neb 3 ML IH SCH ×4 (03:59→21:30)
[2021-02-28] MEDS: *HR* Heparin 5,000 UNIT/ML VIAL SQ SCH ×2 (05:14→17:03)
[2021-02-28] MEDS: Acetaminophen 325 MG TABLET PO PRN ×2 (06:26→17:01)
[2021-02-28 07:51] LABS: Basophils % 0.1 %; Eosinophils % 0.1 %; Hemoglobin 13.1 g/dL (11.5-15.4); Immature Granulocytes % 0.3 % (0-4); Lymphocytes # 1.5 K/mcL (0.6-4.6); Lymphocytes % 15.7 %; Mean Corpuscular HGB Conc 33.6 g/dL (31.6-35.5); Mean Corpuscular Hemoglobin 29.9 pg (28.0-33.3); Mean Platelet Volume 9.9 fL (9.4-12.4); Monocytes # 0.7 K/mcL (0.0-1.3); Monocytes % 7.6 %; Neutrophils # 7.5 K/mcL (1.6-8.9); Platelet Count 278 K/mcL (140-400); Red Blood Count 4.38 M/mcL (3.82-4.97); Red Cell Distribution Width 13.7 % (11.5-14.5); Segmented Neutrophils % 76.2 %; White Blood Count 9.8 K/mcL (4.3-11.1)
[2021-02-28 08:11] LABS: BUN/Creatinine Ratio 34 (6-26); Blood Urea Nitrogen 28 mg/dL (8-23); Calcium 9.1 mg/dL (8.6-10.3); Carbon Dioxide 32 mEq/L (23-29); Chloride 95 mEq/L (98-107); Glucose 83 mg/dL (70-105); Osmolality,Calculated 285 (280-300); Potassium 3.9 mEq/L (3.5-5.1); Sodium 135 mEq/L (136-145); eGFR For African Americans > 60 (> 60); eGFR For Non-African Americans > 60 (> 60)
[2021-02-28] MEDS: predniSONE 20 MG TABLET PO SCH (08:45)
[2021-02-28] MEDS: Aspirin 81 MG TAB.CHEW PO SCH (08:45)
[2021-02-28] MEDS: Doxycycline 100 MG CAPSULE PO SCH ×2 (08:45→21:36)
[2021-02-28] MEDS: carvediloL 6.25 MG TABLET PO SCH ×2 (08:46→17:01)
[2021-02-28] MEDS: Furosemide 20 MG/2 ML VIAL IVP SCH (08:46)
[2021-02-28] MEDS: Cyanocobalamin (B-12) 1,000 MCG TABLET PO SCH (08:46)
[2021-02-28] MEDS ORDERED: *HR* FentaNYL (PF) 100 MCG/2 ML VIAL ONE (12:20)
[2021-02-28] MEDS ORDERED: *HR* Midazolam HCl 2 MG/2 ML VIAL ONE (12:20)
[2021-02-28] MEDS ORDERED: *HR* Heparin 10,000 UNIT/10 ML VIAL ONE (12:21)
[2021-02-28] MEDS ORDERED: Heparin 1,000 UNITS/500 mL 500 ML ONE (12:21)
[2021-02-28] MEDS ORDERED: Nitroglycerin 1,000 MCG/5 ML VIAL IV ONE (12:21)
[2021-02-28] MEDS ORDERED: ISOVUE-370 200 ML INFUS..BTL ONE (12:21)
[2021-02-28] MEDS ORDERED: 0.9 % Sodium Chloride 1,000 ML ONE (13:07)
[2021-02-28] MEDS ORDERED: Tirofiban 12.5 MG/250ML 0 MG/0 ML BAG ONE (13:41)
[2021-02-28] MEDS ORDERED: Isovue-370 500 ML BOTTLE IVP ONE (13:47)
[2021-02-28] MEDS: Budesonide/Formoterol 160/4.5 1 PUFF INH IH SCH (21:29)
[2021-03-01] MEDS: Ipratropium/Albuterol Neb 3 ML IH SCH ×4 (03:51→23:25)
[2021-03-01] MEDS: *HR* Heparin 5,000 UNIT/ML VIAL SQ SCH ×2 (06:08→17:34)
[2021-03-01] MEDS: Acetaminophen 325 MG TABLET PO PRN ×2 (06:11→21:10)
[2021-03-01] MEDS: carvediloL 6.25 MG TABLET PO SCH ×2 (08:08→17:33)
[2021-03-01] MEDS: predniSONE 20 MG TABLET PO SCH (08:08)
[2021-03-01] MEDS: Cyanocobalamin (B-12) 1,000 MCG TABLET PO SCH (08:08)
[2021-03-01] MEDS: Aspirin 81 MG TAB.CHEW PO SCH (08:08)
[2021-03-01] MEDS: Furosemide 20 MG/2 ML VIAL IVP SCH (08:09)
[2021-03-01] MEDS: Budesonide/Formoterol 160/4.5 1 PUFF INH IH SCH ×2 (10:02→23:25)
[2021-03-01 10:44] LABS: BUN/Creatinine Ratio 39 (6-26); Blood Urea Nitrogen 34 mg/dL (8-23); Calcium 8.8 mg/dL (8.6-10.3); Carbon Dioxide 32 mEq/L (23-29); Chloride 95 mEq/L (98-107); Glucose 117 mg/dL (70-105); Osmolality,Calculated 285 (280-300); Potassium 3.7 mEq/L (3.5-5.1); Sodium 133 mEq/L (136-145); eGFR For African Americans > 60 (> 60); eGFR For Non-African Americans > 60 (> 60)
[2021-03-01] MEDS ORDERED: Nitroglycerin 0.4 MG TAB.SUBL SL PRN (11:08)
[2021-03-01 11:34] LABS: Hematocrit 33.7 % (35.3-44.9); Hemoglobin 11.3 g/dL (11.5-15.4); Immature Granulocytes % 0.6 % (0-4); Lymphocytes # 0.7 K/mcL (0.6-4.6); Lymphocytes % 6.6 %; Mean Corpuscular HGB Conc 33.5 g/dL (31.6-35.5); Mean Corpuscular Hemoglobin 29.3 pg (28.0-33.3); Mean Corpuscular Volume 87.3 fL (83.0-100.0); Mean Platelet Volume 10.2 fL (9.4-12.4); Monocytes # 0.3 K/mcL (0.0-1.3); Monocytes % 2.9 %; Neutrophils # 9.8 K/mcL (1.6-8.9); Platelet Count 284 K/mcL (140-400); Red Blood Count 3.86 M/mcL (3.82-4.97); Red Cell Distribution Width 13.7 % (11.5-14.5); Segmented Neutrophils % 89.9 %; White Blood Count 10.9 K/mcL (4.3-11.1)
[2021-03-01] MEDS ORDERED: Heparin 1,000 UNITS/500 mL 0 ML ONE (12:58)
[2021-03-01] MEDS ORDERED: 0.9 % Sodium Chloride 1,000 ML ONE ×2 (12:58→13:24)
[2021-03-01] MEDS ORDERED: ISOVUE-370 200 ML INFUS..BTL ONE (12:59)
[2021-03-01] MEDS ORDERED: *HR* Heparin 10,000 UNIT/10 ML VIAL ONE (12:59)
[2021-03-01] MEDS ORDERED: Nitroglycerin 1,000 MCG/5 ML VIAL IV ONE (12:59)
[2021-03-01] MEDS ORDERED: *HR* FentaNYL (PF) 100 MCG/2 ML VIAL ONE (13:11)
[2021-03-01] MEDS ORDERED: *HR* Midazolam HCl 2 MG/2 ML VIAL ONE (13:11)
[2021-03-01] MEDS: Melatonin 3 MG TABLET PO PRN (21:09)
[2021-03-02 02:55] LABS: Basophils % 0.1 %; Eosinophils % 0.1 %; Hemoglobin 10.2 g/dL (11.5-15.4); Immature Granulocytes % 0.5 % (0-4); Lymphocytes # 1.4 K/mcL (0.6-4.6); Mean Corpuscular HGB Conc 32.9 g/dL (31.6-35.5); Mean Corpuscular Hemoglobin 29.1 pg (28.0-33.3); Mean Corpuscular Volume 88.6 fL (83.0-100.0); Mean Platelet Volume 10.7 fL (9.4-12.4); Monocytes # 0.8 K/mcL (0.0-1.3); Monocytes % 8.8 %; Neutrophils # 7.1 K/mcL (1.6-8.9); Platelet Count 272 K/mcL (140-400); Red Cell Distribution Width 13.8 % (11.5-14.5); Segmented Neutrophils % 75.5 %; White Blood Count 9.4 K/mcL (4.3-11.1)
[2021-03-02 03:12] LABS: BUN/Creatinine Ratio 39 (6-26); Blood Urea Nitrogen 35 mg/dL (8-23); Calcium 8.8 mg/dL (8.6-10.3); Carbon Dioxide 31 mEq/L (23-29); Chloride 96 mEq/L (98-107); Glucose 98 mg/dL (70-105); Osmolality,Calculated 288 (280-300); Potassium 3.7 mEq/L (3.5-5.1); Sodium 135 mEq/L (136-145); eGFR For African Americans > 60 (> 60); eGFR For Non-African Americans > 60 (> 60)
[2021-03-02] MEDS: Ipratropium/Albuterol Neb 3 ML IH SCH ×3 (03:28→16:04)
[2021-03-02] MEDS: *HR* Heparin 5,000 UNIT/ML VIAL SQ SCH (06:45)
[2021-03-02] MEDS: carvediloL 6.25 MG TABLET PO SCH (09:40)
[2021-03-02] MEDS: Cyanocobalamin (B-12) 1,000 MCG TABLET PO SCH (09:40)
[2021-03-02] MEDS: Acetaminophen 325 MG TABLET PO PRN (09:40)
[2021-03-02] MEDS: predniSONE 20 MG TABLET PO SCH (09:40)
[2021-03-02] MEDS: Aspirin 81 MG TAB.CHEW PO SCH (09:40)
[2021-03-02] MEDS: Furosemide 20 MG/2 ML VIAL IVP SCH (09:41)
[2021-03-02] MEDS: Budesonide/Formoterol 160/4.5 1 PUFF INH IH SCH (10:29)
[2021-03-02] MEDS ORDERED: 0.9 % Sodium Chloride 2,000 ML ONE (11:53)
[2021-03-02] MEDS ORDERED: Nitroglycerin 1,000 MCG/5 ML VIAL IV ONE (11:54)
[2021-03-02] MEDS ORDERED: ISOVUE-370 200 ML INFUS..BTL ONE (11:54)
[2021-03-02] MEDS ORDERED: Heparin 1,000 UNITS/500 mL 500 ML ONE (11:54)
[2021-03-02] MEDS ORDERED: *HR* Heparin 10,000 UNIT/10 ML VIAL ONE (11:54)
[2021-03-02] MEDS ORDERED: Isosorbide MONOnitrate (24 HR) 30 MG TAB.ER.24H PO SCH (13:00)
[2021-03-02 15:14] VITALS: O2SAT 98
[2021-03-02 16:16] VITALS: BP 147/84; PULSE 71; TEMP 98.1
== END 2021-03-02 16:45 | disposition home or self-care (01) | DRG 280 ==
LOC: 2ANU 10:29 → EMEROOARM 10:29 → SUATTDRO 13:53 → 2ANU 14:30 → SUATTDRO 02-25 15:25
PROVIDERS: ADMIT Internal Medicine; ATTEND Family Medicine

== ENCOUNTER 2021-03-08 10:28 | Inpatient (IN) ==
[2021-03-08] MEDS ORDERED: 0.9 % Sodium Chloride 1,000 ML IVC ONE (11:19)
[2021-03-08] MEDS ORDERED: Aspirin 325 MG TABLET PO ONE (11:22)
[2021-03-08 12:36] LABS: Basophils % 0.2 %; Hematocrit 32.7 % (35.3-44.9); Hemoglobin 10.6 g/dL (11.5-15.4); Immature Granulocytes % 2.9 % (0-4); Lymphocytes # 0.5 K/mcL (0.6-4.6); Lymphocytes % 2.4 %; Mean Corpuscular HGB Conc 32.4 g/dL (31.6-35.5); Mean Corpuscular Hemoglobin 30.1 pg (28.0-33.3); Mean Corpuscular Volume 92.9 fL (83.0-100.0); Mean Platelet Volume 10.1 fL (9.4-12.4); Monocytes # 1.3 K/mcL (0.0-1.3); Monocytes % 6.3 %; Neutrophils # 18.4 K/mcL (1.6-8.9); Platelet Count 412 K/mcL (140-400); Red Blood Count 3.52 M/mcL (3.82-4.97); Red Cell Distribution Width 14.5 % (11.5-14.5); Segmented Neutrophils % 88.2 %
[2021-03-08 12:39] LABS: White Blood Count 20.9 K/mcL (4.3-11.1)
[2021-03-08 12:59] LABS: Activated Partial Thrombo Time 23.6 Seconds (26.0-36.0)
[2021-03-08 13:09] LABS: Troponin I 0.13 ng/mL (< 0.04)
[2021-03-08 13:24] LABS: Influenza A PCR Negative (Negative); Influenza B PCR Negative (Negative); Resp. Syncytial Virus PCR Negative (Negative); SARS-CoV-2 by PCR (In House) Negative (Negative)
[2021-03-08 13:33] LABS: Alanine Aminotransferase 12 Units/L (7-52); Albumin 4.2 g/dL (3.5-5.7); Albumin/Globulin Ratio 1.6 (1.1-2.2); Alkaline Phosphatase 83 Units/L (34-104); Aspartate Amino Transferase 18 Units/L (13-39); BUN/Creatinine Ratio 31 (6-26); Bilirubin,Direct 0.2 mg/dL (0.0-0.2); Bilirubin,Indirect 0.4 mg/dL (0.0-1.0); Bilirubin,Total 0.6 mg/dL (0.3-1.0); Blood Urea Nitrogen 23 mg/dL (8-23); Calcium 8.9 mg/dL (8.6-10.3); Carbon Dioxide 38 mEq/L (23-29); Chloride 87 mEq/L (98-107); Globulin 2.7 g/dL (2.4-3.5); Glucose 129 mg/dL (70-105); Osmolality,Calculated 285 (280-300); Potassium 3.4 mEq/L (3.5-5.1); Sodium 135 mEq/L (136-145); Total Protein 6.9 g/dL (6.4-8.9); eGFR For African Americans > 60 (> 60); eGFR For Non-African Americans > 60 (> 60)
[2021-03-08 14:07] LABS: Bilirubin,Urine Negative (Negative); Blood,Urine Negative (Negative); Clarity,Urine Clear (Clear); Color,Urine Light-Yellow (Yellow); Glucose,Urine (UA) Normal (Normal); Hyaline Casts,Urine Few per lpf (None Seen); Ketones,Urine Negative (Negative); Leukocyte Esterase,Urine Negative (Negative); Mucus,Urine Few per lpf (None-Few); Nitrite,Urine Positive (Negative); Protein,Urine Trace mg/dL (Neg-Trace); RBC,Urine 0-3 per hpf (0-3); Specific Gravity,Urine 1.013 (1.010-1.025); Squamous Epithelial Cell,Urine Few per hpf (None-Few); Urobilinogen,Urine Normal (Normal); WBC,Urine 0-3 per hpf (0-3)
[2021-03-08] MEDS ORDERED: Albuterol 2.5 MG/3 ML NEBULIZER IH ONE (14:36)
[2021-03-08] MEDS ORDERED: Isovue-370 500 ML BOTTLE IVP ONE (14:38)
[2021-03-08] MEDS ORDERED: Azithromycin 500 MG in 0.9 % Sodium Chloride 250 ML IVPB ONE (17:21)
[2021-03-08] MEDS ORDERED: Naloxone 0.4 MG/ML INJ IVP PRN (18:10)
[2021-03-08] MEDS ORDERED: Melatonin 3 MG TABLET PO PRN (18:10)
[2021-03-08] MEDS ORDERED: *HR* Heparin 5,000 UNIT/ML VIAL IVP PRN ×2 (20:20)
[2021-03-08] MEDS ORDERED: *HR* Heparin 5,000 UNIT/ML VIAL IVP ONE (20:20)
[2021-03-08] MEDS ORDERED: Heparin 25,000UNIT/250ML 1/2NS 25,000 UNIT/250 ML IV.SOLN IVC SCH (20:30)
[2021-03-08 21:00] LABS: Hematocrit 31.3 % (35.3-44.9); Hemoglobin 9.8 g/dL (11.5-15.4); Mean Corpuscular HGB Conc 31.3 g/dL (31.6-35.5); Mean Corpuscular Hemoglobin 29.4 pg (28.0-33.3); Mean Platelet Volume 9.9 fL (9.4-12.4); Platelet Count 365 K/mcL (140-400); Red Blood Count 3.33 M/mcL (3.82-4.97); Red Cell Distribution Width 14.6 % (11.5-14.5); White Blood Count 15.1 K/mcL (4.3-11.1)
[2021-03-08 21:10] LABS: Prothrombin Time 11.2 Seconds (9.4-12.1)
[2021-03-08] MEDS ORDERED: Furosemide 40 MG/4 ML VIAL IVP ONE (21:33)
[2021-03-08] MEDS: Ipratropium/Albuterol Neb 3 ML IH PRN (21:34)
[2021-03-08 21:38] LABS: Heparin anti-factor XA UFH 0.05 IU/mL (0.30-0.70)
[2021-03-08 22:07] LABS: ABG Base Excess 9 mEq/L (-2 to 3); ABG HCO3 41 mEq/L (21-27); ABG Oxygen Saturation 87 % (95-98); ABG PCO2 106 mmHg (35-45); ABG PH 7.19 pH Units (7.32-7.45); ABG PO2 69 mmHg (85-104); ABG TCO2 44 mEq/L (20-26)
[2021-03-08] MEDS: Cefepime HCl 2,000 MG in Water for inj. (sterile) 20 ML IVP SCH (22:09)
[2021-03-08] MEDS: hydrOXYzine pamoate 25 MG CAPSULE PO SCH (22:17)
[2021-03-09 00:02] LABS: ABG Base Excess 11 mEq/L (-2 to 3); ABG HCO3 42 mEq/L (21-27); ABG Oxygen Saturation 82 % (95-98); ABG PCO2 100 mmHg (35-45); ABG PH 7.23 pH Units (7.32-7.45); ABG PO2 59 mmHg (85-104); ABG TCO2 45 mEq/L (20-26); Blood Gas Modality avaps; Blood Gas VT 450 cc
[2021-03-09] MEDS: Budesonide/Formoterol 160/4.5 1 PUFF INH IH SCH ×3 (00:23→22:36)
[2021-03-09] MEDS: Ondansetron 4 MG/2 ML VIAL IVP PRN (02:09)
[2021-03-09] MEDS ORDERED: *HR* Promethazine 25 MG/ML VIAL IM PRN (06:31)
[2021-03-09 06:43] LABS: Basophils % 0.2 %; Eosinophils % 0.2 %; Hematocrit 28.5 % (35.3-44.9); Hemoglobin 9.1 g/dL (11.5-15.4); Immature Granulocytes % 1.4 % (0-4); Lymphocytes # 0.4 K/mcL (0.6-4.6); Lymphocytes % 2.3 %; Mean Corpuscular HGB Conc 31.9 g/dL (31.6-35.5); Mean Corpuscular Hemoglobin 29.7 pg (28.0-33.3); Mean Corpuscular Volume 93.1 fL (83.0-100.0); Mean Platelet Volume 10.2 fL (9.4-12.4); Monocytes # 0.9 K/mcL (0.0-1.3); Monocytes % 4.9 %; Neutrophils # 16.4 K/mcL (1.6-8.9); Nucleated Red Blood Cells 0.2 /100 WBC (0); Platelet Count 336 K/mcL (140-400); Red Blood Count 3.06 M/mcL (3.82-4.97); Red Cell Distribution Width 14.8 % (11.5-14.5)
[2021-03-09] MEDS ORDERED: Furosemide 40 MG/4 ML VIAL ONE (06:57)
[2021-03-09] MEDS ORDERED: methylPREDNISolone 125 MG/2 ML VIAL ONE (06:57)
[2021-03-09] MEDS ORDERED: Furosemide 40 MG/4 ML VIAL IVP ONE (07:00)
[2021-03-09] MEDS ORDERED: methylPREDNISolone 125 MG/2 ML VIAL IVP ONE (07:00)
[2021-03-09] MEDS ORDERED: *HR* LORazepam 2 MG/ML VIAL IVP STA (07:04)
[2021-03-09 07:05] LABS: BUN/Creatinine Ratio 32 (6-26); Blood Urea Nitrogen 29 mg/dL (8-23); Calcium 8.3 mg/dL (8.6-10.3); Carbon Dioxide 37 mEq/L (23-29); Chloride 90 mEq/L (98-107); Glucose 100 mg/dL (70-105); Osmolality,Calculated 288 (280-300); Phosphorous 4.1 mg/dL (2.7-4.5); Potassium 3.8 mEq/L (3.5-5.1); Sodium 136 mEq/L (136-145); eGFR For African Americans > 60 (> 60); eGFR For Non-African Americans > 60 (> 60)
[2021-03-09 07:30] LABS: ABG Base Excess 10 mEq/L (-2 to 3); ABG HCO3 37 mEq/L (21-27); ABG Oxygen Saturation 83 % (95-98); ABG PCO2 72 mmHg (35-45); ABG PH 7.32 pH Units (7.32-7.45); ABG PO2 54 mmHg (85-104); ABG TCO2 40 mEq/L (20-26); Blood Gas Modality NIV; Blood Gas VT 450 cc
[2021-03-09] MEDS: Aspirin Enteric Coated 81 MG Tablet PO SCH (09:32)
[2021-03-09] MEDS: carvediloL 6.25 MG TABLET PO SCH ×2 (09:32→16:00)
[2021-03-09] MEDS: Cyanocobalamin (B-12) 1,000 MCG TABLET PO SCH (09:33)
[2021-03-09] MEDS: hydrOXYzine pamoate 25 MG CAPSULE PO SCH ×2 (09:33→22:05)
[2021-03-09] MEDS: Isosorbide MONOnitrate (24 HR) 30 MG TAB.ER.24H PO SCH (09:33)
[2021-03-09] MEDS: Tiotropium 10 INH DOSE IH SCH (09:53)
[2021-03-09] MEDS: Ipratropium/Albuterol Neb 3 ML IH PRN (09:56)
[2021-03-09] MEDS: Cefepime HCl 2,000 MG in Water for inj. (sterile) 20 ML IVP SCH ×2 (10:50→22:06)
[2021-03-10 04:54] LABS: Basophils % 0.1 %; Hemoglobin 7.9 g/dL (11.5-15.4); Immature Granulocytes % 0.8 % (0-4); Lymphocytes # 0.4 K/mcL (0.6-4.6); Lymphocytes % 2.2 %; Mean Corpuscular HGB Conc 31.6 g/dL (31.6-35.5); Mean Corpuscular Hemoglobin 29.5 pg (28.0-33.3); Mean Corpuscular Volume 93.3 fL (83.0-100.0); Mean Platelet Volume 10.2 fL (9.4-12.4); Monocytes # 0.7 K/mcL (0.0-1.3); Monocytes % 4.3 %; Platelet Count 296 K/mcL (140-400); Red Blood Count 2.68 M/mcL (3.82-4.97); Red Cell Distribution Width 15.4 % (11.5-14.5); Segmented Neutrophils % 92.6 %; White Blood Count 16.2 K/mcL (4.3-11.1)
[2021-03-10 05:12] LABS: BUN/Creatinine Ratio 42 (6-26); Blood Urea Nitrogen 44 mg/dL (8-23); Calcium 8.2 mg/dL (8.6-10.3); Carbon Dioxide 38 mEq/L (23-29); Chloride 90 mEq/L (98-107); Glucose 110 mg/dL (70-105); Osmolality,Calculated 294 (280-300); Potassium 3.7 mEq/L (3.5-5.1); Sodium 136 mEq/L (136-145); eGFR For African Americans > 60 (> 60); eGFR For Non-African Americans 51 (> 60)
[2021-03-10] MEDS: Cefepime HCl 2,000 MG in Water for inj. (sterile) 20 ML IVP SCH ×2 (08:50→21:16)
[2021-03-10] MEDS: Aspirin Enteric Coated 81 MG Tablet PO SCH (08:51)
[2021-03-10] MEDS: Isosorbide MONOnitrate (24 HR) 30 MG TAB.ER.24H PO SCH (08:51)
[2021-03-10] MEDS: Cyanocobalamin (B-12) 1,000 MCG TABLET PO SCH (08:51)
[2021-03-10] MEDS: hydrOXYzine pamoate 25 MG CAPSULE PO SCH ×2 (08:51→21:16)
[2021-03-10] MEDS ORDERED: predniSONE 20 MG TABLET PO SCH (09:00)
[2021-03-10] MEDS: Ipratropium/Albuterol Neb 3 ML IH PRN (10:10)
[2021-03-10] MEDS: Budesonide/Formoterol 160/4.5 1 PUFF INH IH SCH ×2 (10:12→20:27)
[2021-03-10] MEDS ORDERED: Furosemide 20 MG/2 ML VIAL IVP ONE (12:13)
[2021-03-10] MEDS ORDERED: Acetaminophen 325 MG TABLET PO PRN (14:36)
[2021-03-10] MEDS: Tiotropium 10 INH DOSE IH SCH (16:41)
[2021-03-10] MEDS: *HR* Heparin 5,000 UNIT/ML VIAL SQ SCH (17:43)
[2021-03-10] MEDS: Ondansetron 4 MG/2 ML VIAL IVP PRN (21:33)
[2021-03-11 00:06] VITALS: PULSE 99
[2021-03-11] MEDS ORDERED: 0.9 % Sodium Chloride 500 ML IVC ONE (01:01)
[2021-03-11 04:18] VITALS: BP 101/60; TEMP 97.6; O2SAT 97
[2021-03-11] MEDS: *HR* Heparin 5,000 UNIT/ML VIAL SQ SCH (05:12)
[2021-03-11] MEDS: Ondansetron 4 MG/2 ML VIAL IVP PRN (06:28)
[2021-03-11 06:30] LABS: Basophils % 0.1 %; Hematocrit 23.7 % (35.3-44.9); Hemoglobin 7.5 g/dL (11.5-15.4); Immature Granulocytes % 0.9 % (0-4); Lymphocytes # 0.4 K/mcL (0.6-4.6); Lymphocytes % 2.2 %; Mean Corpuscular HGB Conc 31.6 g/dL (31.6-35.5); Mean Corpuscular Volume 94.8 fL (83.0-100.0); Mean Platelet Volume 10.1 fL (9.4-12.4); Monocytes # 1.1 K/mcL (0.0-1.3); Monocytes % 6.4 %; Neutrophils # 14.9 K/mcL (1.6-8.9); Nucleated Red Blood Cells 0.2 /100 WBC (0); Platelet Count 302 K/mcL (140-400); Red Cell Distribution Width 15.8 % (11.5-14.5); Segmented Neutrophils % 90.4 %; White Blood Count 16.5 K/mcL (4.3-11.1)
[2021-03-11 06:37] LABS: INR 1.1; Prothrombin Time 11.9 Seconds (9.4-12.1)
[2021-03-11 06:50] LABS: Calcium 8.4 mg/dL (8.6-10.3); Potassium 3.8 mEq/L (3.5-5.1)
[2021-03-11] MEDS ORDERED: Ondansetron 4 MG/2 ML VIAL ONE (07:32)
[2021-03-11] MEDS ORDERED: Lidocaine -MPF 2% 2 ML VIAL ONE (07:32)
[2021-03-11] MEDS ORDERED: *HR* Succinylcholine 200 MG/10 ML VIAL IVP ONE (07:32)
[2021-03-11] MEDS ORDERED: *HR* Propofol 200 MG/20 ML VIAL IVP ONE (07:32)
[2021-03-11] MEDS ORDERED: *HR* EPINEPHrine 1 MG/10 ML SYRINGE IVP ONE (10:29)
[2021-03-11] MEDS: Budesonide/Formoterol 160/4.5 1 PUFF INH IH SCH (11:06)
[2021-03-11] MEDS: Tiotropium 10 INH DOSE IH SCH (11:06)
== END 2021-03-11 10:30 | disposition expired | DRG 871 ==
LOC: 2ANU 10:28 → EMEROOARM 10:28 → SUATTDRO 18:56 → 2ANU 19:57 → 3NENU 03-09 00:24
PROVIDERS: ADMIT Internal Medicine; ATTEND Internal Medicine